=== PATIENT | female | born 1990 | race Caucasian/White ===

== ENCOUNTER → 2018-01-12 16:31 | Outpatient (CLI) | payer MEDICAID, SELFPAY ==
[2018-01-12 17:22] LABS: Absolute Lymphocyte Count 2.33 X10^3/ul (0.83-4.51); Absolute Neutrophil Count 4.6 X10^3/uL (2.0-7.7); Basophil# 0.03 X10^3/uL; Basophil% 0.4 % (0-1); Eosinophil# 0.27 X10^3/uL; Eosinophils% 3.6 % (0-5); Hematocrit 35.2 % (37-47); Hemoglobin 11.4 g/dl (12.0-15.0); Lymphocyte # 2.33 X10^3/ul (4.0); Lymphocyte % 30.8 % (19-41); Mean Corp Hgb Conc 32.4 g/gl (32-36); Mean Corpuscular Hgb 33.3 pg (27.0-32.0); Mean Corpuscular Volume 102.9 fL (81-99); Mean Platelet Vol. 12.5 fl (6.2-12.0); Monocyte# 0.36 X10^3/uL; Monocyte% 4.8 % (0-10); Neutrophil # 4.57 X10^3/uL (2.7-7.7); Neutrophil % 60.3 % (47-70); Platelet Count 158 K/mm3 (150-450); RBC Distribution Width SD 47.9 fl (35.1-43.9); Red Blood Count 3.42 M/mm3 (4.2-5.4); White Blood Count 7.6 K/mm3 (4.4-11.0)
[2018-01-12 17:25] LABS: POSITIVE COUNT NO; POSITIVE DIFFERENTIAL NO; POSITIVE MORPHOLOGY NO
[2018-01-12 17:32] LABS: AST(SGOT) 13 U/L (15-37); Alanine Aminotransfer ALT/SGPT 15 U/L (13-56); Albumin, Serum 3.6 g/dL (3.2-5.0); Alkaline Phosphatase 64 U/L (45-117); Anion Gap 5 (5-15); BUN 19 mg/dL (7-18); BUN/Creat Ratio 13.2 RATIO (10-20); Calcium,Total 8.8 mg/dL (8.5-10.1); Chloride 107 mmol/L (98-107); Creatinine, Serum 1.44 mg/dL (0.55-1.02); EST Glomerular Filtration Rate 46 mL/min (>60); Est Glom Filt Rate - Afr Amer 56 mL/min (>60); Globulin 3.5 g/dL (2.2-4.2); Glucose 109 mg/dL (74-106); Potassium 3.8 mmol/L (3.5-5.1); Protein, Total 7.1 g/dL (6.4-8.2); Sodium Level 140 mmol/L (136-145)
== END ==
DX: M06.4 Inflammatory polyarthropathy (principal)
CPT/HCPCS: 36415; 80053; 85025

== ENCOUNTER → 2018-04-29 14:45 | Outpatient (CLI) | payer MEDICAID, SELFPAY ==
[2018-04-29 15:41] LABS: Hematocrit 34.7 % (37-47); Hemoglobin 11.1 g/dl (12.0-15.0); Mean Corpuscular Hgb 32.3 pg (27.0-32.0); Mean Corpuscular Volume 100.9 fL (81-99); Mean Platelet Vol. 12.3 fl (6.2-12.0); Platelet Count 188 K/mm3 (150-450); RBC Distribution Width CV 13.9 % (11.6-14.6); RBC Distribution Width SD 51.1 fl (35.1-43.9); Red Blood Count 3.44 M/mm3 (4.2-5.4); White Blood Count 7.1 K/mm3 (4.4-11.0)
[2018-04-29 15:46] LABS: Scan Indicated on CBC? Y/N NO
[2018-04-29 16:22] LABS: Albumin, Serum 3.5 g/dL (3.2-5.0); BUN 14 mg/dL (7-18); BUN/Creat Ratio 10.5 RATIO (10-20); Calcium,Total 8.8 mg/dL (8.5-10.1); Chloride 108 mmol/L (98-107); Creatinine, Serum 1.33 mg/dL (0.55-1.02); EST Glomerular Filtration Rate 50 mL/min (>60); Est Glom Filt Rate - Afr Amer 61 mL/min (>60); Glucose 76 mg/dL (74-106); Phosphorus 3.1 mg/dL (2.5-4.9); Potassium 4.1 mmol/L (3.5-5.1); Sodium Level 141 mmol/L (136-145)
[2018-04-29 16:30] LABS: PTHIN 59.4 pg/mL (18.4-80.1)
[2018-04-29 16:46] LABS: Microalbumin:Creatinine Ratio 486.7 mg/g CRE (<30 mg/g CRE)
== END ==
PROVIDERS: Visit Provider Internal Medicine Nephrology
DX: N18.3 Chronic kidney disease, stage 3 (moderate) (principal)
CPT/HCPCS: 36415; 80069; 82043; 82306; 82570; 83970; 85027

== ENCOUNTER → 2018-08-21 13:47 | Outpatient (CLI) | payer MEDICAID, SELFPAY ==
[2018-08-21 14:59] LABS: Absolute Lymphocyte Count 2.13 X10^3/ul (0.83-4.51); Basophil# 0.03 X10^3/uL; Basophil% 0.4 % (0-1); Eosinophils% 2.6 % (0-5); Hematocrit 36.8 % (37-47); Hemoglobin 11.6 g/dl (12.0-15.0); Lymphocyte # 2.13 X10^3/ul (4.0); Lymphocyte % 27.7 % (19-41); Mean Corp Hgb Conc 31.5 g/gl (32-36); Mean Corpuscular Hgb 32.7 pg (27.0-32.0); Mean Corpuscular Volume 103.7 fL (81-99); Monocyte# 0.38 X10^3/uL; Monocyte% 4.9 % (0-10); Neutrophil # 4.95 X10^3/uL (2.7-7.7); Neutrophil % 64.3 % (47-70); Platelet Count 201 K/mm3 (150-450); RBC Distribution Width CV 13.9 % (11.6-14.6); RBC Distribution Width SD 52.4 fl (35.1-43.9); Red Blood Count 3.55 M/mm3 (4.2-5.4); White Blood Count 7.7 K/mm3 (4.4-11.0)
[2018-08-21 15:00] LABS: POSITIVE COUNT NO; POSITIVE DIFFERENTIAL NO; POSITIVE MORPHOLOGY NO
[2018-08-21 15:23] LABS: ALB/GLOB Ratio 1.1 RATIO (0.9-2.4); AST(SGOT) 17 U/L (15-37); Alanine Aminotransfer ALT/SGPT 22 U/L (13-56); Albumin, Serum 3.8 g/dL (3.2-5.0); Alkaline Phosphatase 71 U/L (45-117); Anion Gap 6 (5-15); BUN 15 mg/dL (7-18); BUN/Creat Ratio 9.9 RATIO (10-20); Calcium,Total 8.9 mg/dL (8.5-10.1); Chloride 106 mmol/L (98-107); Creatinine, Serum 1.51 mg/dL (0.55-1.02); EST Glomerular Filtration Rate 43 mL/min (>60); Est Glom Filt Rate - Afr Amer 52 mL/min (>60); Globulin 3.6 g/dL (2.2-4.2); Glucose 92 mg/dL (74-106); Potassium 4.2 mmol/L (3.5-5.1); Protein, Total 7.4 g/dL (6.4-8.2); Sodium Level 140 mmol/L (136-145)
== END ==
DX: M06.4 Inflammatory polyarthropathy (principal)
CPT/HCPCS: 36415; 80053; 85025

== ENCOUNTER → 2018-11-20 14:50 | Outpatient (CLI) | payer MEDICAID, SELFPAY ==
[2018-11-20 15:50] LABS: Absolute Lymphocyte Count 1.89 X10^3/ul (0.83-4.51); Absolute Neutrophil Count 5.4 X10^3/uL (2.0-7.7); Basophil# 0.03 X10^3/uL; Basophil% 0.4 % (0-1); Eosinophil# 0.14 X10^3/uL; Eosinophils% 1.8 % (0-5); Hematocrit 37.4 % (37-47); Hemoglobin 12.1 g/dl (12.0-15.0); Lymphocyte # 1.89 X10^3/ul (4.0); Lymphocyte % 24.4 % (19-41); Mean Corp Hgb Conc 32.4 g/gl (32-36); Mean Corpuscular Hgb 33.1 pg (27.0-32.0); Mean Corpuscular Volume 102.2 fL (81-99); Mean Platelet Vol. 12.8 fl (6.2-12.0); Monocyte# 0.28 X10^3/uL; Monocyte% 3.6 % (0-10); Neutrophil # 5.39 X10^3/uL (2.7-7.7); Neutrophil % 69.7 % (47-70); POSITIVE COUNT NO; POSITIVE DIFFERENTIAL NO; POSITIVE MORPHOLOGY NO; Platelet Count 175 K/mm3 (150-450); RBC Distribution Width CV 13.1 % (11.6-14.6); RBC Distribution Width SD 47.8 fl (35.1-43.9); Red Blood Count 3.66 M/mm3 (4.2-5.4); White Blood Count 7.7 K/mm3 (4.4-11.0)
[2018-11-20 16:11] LABS: Albumin, Serum 3.6 g/dL (3.2-5.0); BUN 21 mg/dL (7-18); BUN/Creat Ratio 14.4 RATIO (10-20); Calcium,Total 8.9 mg/dL (8.5-10.1); Chloride 109 mmol/L (98-107); Creatinine, Serum 1.46 mg/dL (0.55-1.02); EST Glomerular Filtration Rate 45 mL/min (>60); Est Glom Filt Rate - Afr Amer 54 mL/min (>60); Glucose 82 mg/dL (74-106); Phosphorus 3.7 mg/dL (2.5-4.9); Potassium 3.5 mmol/L (3.5-5.1); Sodium Level 142 mmol/L (136-145)
[2018-11-20 16:38] LABS: Protein:Creat Ratio 1942 mg/g CRE (0-200)
[2018-11-20 16:42] LABS: Vitamin D,25 Hydroxy 40.7 ng/mL (29.95-100.01)
== END ==
PROVIDERS: Referring Provider Internal Medicine Nephrology; Visit Provider Internal Medicine Nephrology
DX: N18.3 Chronic kidney disease, stage 3 (moderate) (principal); E55.9 Vitamin D deficiency, unspecified
CPT/HCPCS: 36415; 80069; 82306; 82570; 83970; 84156; 85025

== ENCOUNTER → 2019-02-12 14:35 | Outpatient (CLI) | payer MEDICAID, SELFPAY ==
[2019-02-12 15:02] LABS: Hematocrit 33.1 % (37-47); Hemoglobin 10.5 g/dl (12.0-15.0); Mean Corp Hgb Conc 31.7 g/gl (32-36); Mean Corpuscular Hgb 32.4 pg (27.0-32.0); Mean Corpuscular Volume 102.2 fL (81-99); Mean Platelet Vol. 12.7 fl (6.2-12.0); Platelet Count 181 K/mm3 (150-450); RBC Distribution Width CV 13.7 % (11.6-14.6); RBC Distribution Width SD 51.5 fl (35.1-43.9); Red Blood Count 3.24 M/mm3 (4.2-5.4); Scan Indicated on CBC? Y/N NO; White Blood Count 7.3 K/mm3 (4.4-11.0)
[2019-02-12 15:08] LABS: Protein, Urine (Random) 30.5 mg/dL (<11.9); Protein:Creat Ratio 376 mg/g CRE (0-200)
[2019-02-12 15:34] LABS: BUN 25 mg/dL (7-18); BUN/Creat Ratio 15.6 RATIO (10-20); Chloride 113 mmol/L (98-107); EST Glomerular Filtration Rate 40 mL/min (>60); Est Glom Filt Rate - Afr Amer 49 mL/min (>60); Glucose 102 mg/dL (74-106); Phosphorus 3.7 mg/dL (2.5-4.9); Potassium 4.7 mmol/L (3.5-5.1); Sodium Level 143 mmol/L (136-145)
[2019-02-12 15:37] LABS: PTHIN 41.2 pg/mL (18.4-80.1)
[2019-02-12 15:41] LABS: Vitamin D,25 Hydroxy 41.6 ng/mL (29.95-100.01)
== END ==
PROVIDERS: Referring Provider Physician Assistant Medical; Visit Provider Physician Assistant Medical
DX: N18.3 Chronic kidney disease, stage 3 (moderate) (principal); E55.9 Vitamin D deficiency, unspecified
CPT/HCPCS: 36415; 80069; 82306; 82570; 83970; 84156; 85027

== ENCOUNTER → 2019-05-05 13:47 | Outpatient (CLI) | payer MEDICAID, SELFPAY ==
[2019-05-05 14:33] LABS: Absolute Lymphocyte Count 2.02 X10^3/ul (0.83-4.51); Absolute Neutrophil Count 3.8 X10^3/uL (2.0-7.7); Basophil# 0.03 X10^3/uL; Basophil% 0.5 % (0-1); Eosinophil# 0.29 X10^3/uL; Eosinophils% 4.4 % (0-5); Hematocrit 33.4 % (37-47); Hemoglobin 10.6 g/dl (12.0-15.0); Lymphocyte # 2.02 X10^3/ul (4.0); Lymphocyte % 30.6 % (19-41); Mean Corp Hgb Conc 31.7 g/gl (32-36); Mean Corpuscular Hgb 32.8 pg (27.0-32.0); Mean Corpuscular Volume 103.4 fL (81-99); Mean Platelet Vol. 12.4 fl (6.2-12.0); Monocyte# 0.47 X10^3/uL; Monocyte% 7.1 % (0-10); Neutrophil # 3.78 X10^3/uL (2.7-7.7); Neutrophil % 57.2 % (47-70); Platelet Count 157 K/mm3 (150-450); RBC Distribution Width CV 13.2 % (11.6-14.6); RBC Distribution Width SD 48.6 fl (35.1-43.9); Red Blood Count 3.23 M/mm3 (4.2-5.4); White Blood Count 6.6 K/mm3 (4.4-11.0)
[2019-05-05 14:34] LABS: Color, Urine Yellow (Yellow); Glucose, Dipstick Normal (Normal); Ketone-Dipstick Negative (Negative); Leukocyte Esterase-Dipstick 100 /ul (Negative); Nitrite-Dipstick Negative (Negative); Occult Blood-Urine Negative /ul (Negative); POSITIVE COUNT NO; POSITIVE DIFFERENTIAL NO; POSITIVE MORPHOLOGY NO; Protein-Dipstick 15 mg/dl (Negative); Specific Gravity, Urine 1.015 (1.002-1.030); Urine Bilirubin Dipstick Negative (Negative); Urine Clarity Clear (Clear); Urine Urobilinogen Normal (Normal)
[2019-05-05 14:53] LABS: ALB/GLOB Ratio 1.1 RATIO (0.9-2.4); AST(SGOT) 12 U/L (15-37); Alanine Aminotransfer ALT/SGPT 23 U/L (13-56); Albumin, Serum 3.6 g/dL (3.2-5.0); Alkaline Phosphatase 52 U/L (45-117); Anion Gap 8 (5-15); BUN 27 mg/dL (7-18); BUN/Creat Ratio 16.5 RATIO (10-20); Bilirubin, Direct 0.09 mg/dL (0.00-0.30); Calcium,Total 9.2 mg/dL (8.5-10.1); Chloride 111 mmol/L (98-107); Cholesterol 118 mg/dL (200); Creatinine, Serum 1.64 mg/dL (0.55-1.02); EST Glomerular Filtration Rate 39 mL/min (>60); Est Glom Filt Rate - Afr Amer 47 mL/min (>60); Globulin 3.3 g/dL (2.2-4.2); Glucose 88 mg/dL (74-106); High Density Lipoprotein 62 mg/dL; Potassium 4.5 mmol/L (3.5-5.1); Protein, Total 6.9 g/dL (6.4-8.2); Sodium Level 143 mmol/L (136-145); Triglycerides 125 mg/dL; Very Low Density Lipoprotein 25 mg/dL (5-40)
== END ==
PROVIDERS: Referring Provider Nurse Practitioner Adult Health; Visit Provider Nurse Practitioner Adult Health
DX: Z00.00 Encounter for general adult medical examination without abnormal findings (principal); R19.4 Change in bowel habit
CPT/HCPCS: 36415; 80053; 80061; 81002; 82248; 85025

== ENCOUNTER → 2019-05-12 13:42 | Outpatient (CLI) | payer MEDICAID, SELFPAY ==
[2019-05-12 15:52] LABS: Absolute Lymphocyte Count 1.96 X10^3/ul (0.83-4.51); Absolute Neutrophil Count 4.4 X10^3/uL (2.0-7.7); Basophil# 0.05 X10^3/uL; Basophil% 0.7 % (0-1); Eosinophil# 0.22 X10^3/uL; Eosinophils% 3.2 % (0-5); Hematocrit 31.6 % (37-47); Lymphocyte # 1.96 X10^3/ul (4.0); Lymphocyte % 28.2 % (19-41); Mean Corp Hgb Conc 31.6 g/gl (32-36); Mean Corpuscular Hgb 33.1 pg (27.0-32.0); Mean Corpuscular Volume 104.6 fL (81-99); Monocyte# 0.34 X10^3/uL; Monocyte% 4.9 % (0-10); Neutrophil # 4.38 X10^3/uL (2.7-7.7); Neutrophil % 62.9 % (47-70); Platelet Count 197 K/mm3 (150-450); RBC Distribution Width CV 13.7 % (11.6-14.6); RBC Distribution Width SD 51.2 fl (35.1-43.9); Red Blood Count 3.02 M/mm3 (4.2-5.4)
[2019-05-12 15:53] LABS: POSITIVE COUNT NO; POSITIVE DIFFERENTIAL NO; POSITIVE MORPHOLOGY NO
[2019-05-12 16:03] LABS: Erythrocyte Sedimentation Rate 1 mm/hr (0-20)
[2019-05-12 16:23] LABS: Vitamin D,25 Hydroxy 33.1 ng/mL (29.95-100.01)
[2019-05-12 16:24] LABS: ALB/GLOB Ratio 1.2 RATIO (0.9-2.4); AST(SGOT) 10 U/L (15-37); Alanine Aminotransfer ALT/SGPT 20 U/L (13-56); Albumin, Serum 3.7 g/dL (3.2-5.0); Alkaline Phosphatase 55 U/L (45-117); Anion Gap 8 (5-15); BUN 30 mg/dL (7-18); BUN/Creat Ratio 17.9 RATIO (10-20); CPK Total, Creatine Kinase 55 U/L (26-192); CRP < 2.90 mg/L (0.0-3.0); Calcium,Total 8.9 mg/dL (8.5-10.1); Chloride 113 mmol/L (98-107); Creatinine, Serum 1.68 mg/dL (0.55-1.02); EST Glomerular Filtration Rate 38 mL/min (>60); Est Glom Filt Rate - Afr Amer 46 mL/min (>60); Globulin 3.2 g/dL (2.2-4.2); Glucose 97 mg/dL (74-106); Potassium 4.5 mmol/L (3.5-5.1); Protein, Total 6.9 g/dL (6.4-8.2); Rheumatoid Factor < 10.0 IU/mL (<15); Sodium Level 142 mmol/L (136-145)
[2019-05-14 16:07] LABS: Anti-Jo <0.2 AI (0.0-0.9); Anti-Scleroderma-70 AB <0.2 AI (0.0-0.9); SJOGREN'S Anti-SS-A test < 0.2 AI (0.0-0.9); SJOGREN'S Anti-SS-B test < 0.2 AI (0.0-0.9); Smith Ab <0.2 AI (0.0-0.9)
[2019-05-15 03:06] LABS: Complement C3 102 mg/dL (82-167)
[2019-05-16 14:04] LABS: ANTINUCLEAR ANTIBODIES DIRECT Positive (Negative); Anti-Mitochondrial AB <20.0 Units (0.0-20.0); Anti-dsDNA Ab 1 IU/mL (0-9)
[2019-05-16 14:05] LABS: Anti-Nuclear Antibody Test Negative (.)
[2019-05-16 14:06] LABS: Anti-Cardiolipin Ab, IgA, Qn < 9 APL U/mL (0-11); Anti-Cardiolipin Ab, IgG, Qn < 9 GPL U/mL (0-14); Anti-Cardiolipin Ab, IgM, Qn < 9 MPL U/mL (0-12); CCP IgG Antibodies 4 units (0-19); Thyroid Peroxidase AB 8 IU/mL (0-34)
== END ==
PROVIDERS: Referring Provider Internal Medicine Rheumatology; Visit Provider Internal Medicine Rheumatology
DX: N18.3 Chronic kidney disease, stage 3 (moderate) (principal); M06.4 Inflammatory polyarthropathy; M87.00 Idiopathic aseptic necrosis of unspecified bone; M32.8 Other forms of systemic lupus erythematosus; Z79.899 Other long term (current) drug therapy
CPT/HCPCS: 36415; 80053; 82306; 82550; 83516; 85025; 85652; 86038; 86140; 86147; 86160; 86200; 86225; 86235; 86376; 86431

== ENCOUNTER → 2019-06-02 08:10 | Outpatient (CLI) | payer MEDICAID, SELFPAY ==
--- NOTE | 2019-06-02 08:18 | RAD_ITS ---
HISTORY: HISTORY: AVASCULAR NECROSIS OF BONE,INFLAMMATORY POLYARTHROPATHY, LUPUS XR Hand Min 3 Views COMPARISON: None FINDINGS: # of images incl. paperwork: 3 3 views of the left hand. Findings: No fracture or subluxation. No osseous or soft tissue abnormality. No significant joint space narrowing. No radiopaque foreign body. RAD/Hand Min 3 Views IMPRESSION: Normal left hand. at 0330 Reported and signed by: Orville Beaver MD Electronically Signed: Orville Beaver MD at 3:29 EDT Tel , Service support ,
--- NOTE | 2019-06-02 08:22 | RAD_ITS ---
STUDY: X-RAY CHEST REASON FOR EXAM: Female, 28 years old. Avascular necrosis, lupus TECHNIQUE: PA and lateral chest COMPARISON: 01/08/2017 FINDINGS: The lungs are clear and expanded. There is no demonstrated pleural abnormality. Normal size heart. Normal mediastinum and alexandra. Normal visualized pulmonary arteries. Normal visualized aortic arch and descending thoracic aorta. There is chronic deformity of both shoulders with subchondral sclerosis. There are sternal wires. There is mild pectus deformity of the chest. There are degenerative changes of the thoracic spine. There are no pleural effusions. There is no demonstrated abnormality of the visualized soft tissue structures of the upper abdomen. There is distention of the colon within the upper abdomen. RAD/Chest PA and Lateral IMPRESSION: Bilateral shoulder avascular necrosis with degenerative changes Multilevel spondylosis thoracic spine Electronically Signed: Godwin Robertson, at 23:46 EDT Tel , Service support ,
--- NOTE | 2019-06-02 08:26 | RAD_ITS ---
STUDY: X-RAY - RIGHT SHOULDER REASON FOR EXAM: Female, 28 years old. Shoulder pain TECHNIQUE: 3 view(s) of the shoulder. COMPARISON: Multiple prior chest radiographs and CTA chest 06/12/2016 FINDINGS: There is stable sclerosis within the humeral head. There is mild deformity of the humeral head. This is chronic. There are sternal wires.. Normal acromioclavicular joint. Normal acromion. . The soft tissue structures are unremarkable. Normal visualized pulmonary apex. RAD/Shoulder min 2 Views IMPRESSION: Likely avascular necrosis right humeral head, no acute findings Sternal wires Electronically Signed: Godwin Robertson, at 23:21 EDT Tel , Service support ,
--- NOTE | 2019-06-02 08:32 | RAD_ITS ---
STUDY: X-RAY - LEFT SHOULDER REASON FOR EXAM: Female, 28 years old. Shoulder pain TECHNIQUE: 3 view(s) of the shoulder. COMPARISON: Prior chest radiographs FINDINGS: There is stable sclerosis and deformity of the humeral head. There is likely a bony exostosis.. The soft tissue structures are unremarkable. There are sternal wires. Normal visualized pulmonary apex. RAD/Shoulder min 2 Views IMPRESSION: Avascular necrosis of the left humeral head Sternal wires Electronically Signed: Godwin Robertson, at 23:24 EDT Tel , Service support ,
--- NOTE | 2019-06-02 08:38 | RAD_ITS ---
HISTORY: HISTORY: AVASCULAR NECROSIS OF BONE,INFLAMMATORY POLYARTHROPATHY, LUPUS XR Hand Min 3 Views COMPARISON: No comparison imaging of the right hand FINDINGS: # of images incl. paperwork: 3 3 views of the right hand. Findings: No fracture or subluxation. No osseous or soft tissue abnormality. No significant joint space narrowing. No radiopaque foreign body. RAD/Hand Min 3 Views IMPRESSION: Normal right hand. at 0320 Reported and signed by: Orville Beaver MD Electronically Signed: Orville Beaver MD at 3:19 EDT Tel , Service support ,
--- NOTE | 2019-06-02 08:42 | RAD_ITS ---
STUDY: X-RAY - RIGHT ELBOW REASON FOR EXAM: Female, 28 years old. Avascular sclerosis, pain, SLE TECHNIQUE: AP and lateral view(s) of the elbow. COMPARISON: None. FINDINGS: Normal visualized humerus, radius and ulna. Normal radiocapitellar and ulnotrochlear articulations. The soft tissue structures are unremarkable. There are small coronoid osteophytes. There are small radial head osteophytes. RAD/Elbow 2 Views IMPRESSION: Mild osteoarthrosis, no acute fractures Electronically Signed: Godwin Robertson, at 23:41 EDT Tel , Service support ,
== END ==
PROVIDERS: PCP Family Medicine; Referring Provider Internal Medicine Rheumatology; Visit Provider Internal Medicine Rheumatology
DX: M06.4 Inflammatory polyarthropathy (principal); N18.3 Chronic kidney disease, stage 3 (moderate); M32.9 Systemic lupus erythematosus, unspecified; M87.00 Idiopathic aseptic necrosis of unspecified bone; M19.90 Unspecified osteoarthritis, unspecified site; Z79.899 Other long term (current) drug therapy
CPT/HCPCS: 71046; 73030; 73070; 73130

== ENCOUNTER 2019-06-13 09:16 | Emergency (ER) | payer MEDICAID, SELFPAY ==
[2019-06-13 09:17] VITALS: BP 114/75; PULSE 80; RESP 16; TEMP 36.9; O2SAT 100; BMI 19.9
--- NOTE | 2019-06-13 09:37 | RAD_ITS ---
STUDY: X-RAY - RIGHT KNEE REASON FOR EXAM: Female, 28 years old. History of vascular necrosis of the right hip. Fall. TECHNIQUE: 2 view(s) of the knee. COMPARISON: None. FINDINGS: Normal visualized distal femur. Normal visualized proximal tibia and fibula. Normal proximal tibiofibular articulation. There is mild degenerative arthrosis of the medial femorotibial compartment. There is moderate degenerative arthrosis of the lateral femorotibial compartment with moderate joint space narrowing. There is mild degenerative arthrosis of the patellofemoral articulation. There is no demonstrated joint effusion. The soft tissue structures are unremarkable. RAD/Knee 1 or 2 Views IMPRESSION: Degenerative arthrosis. There is no acute fracture or dislocation. Electronically Signed: Paul Edmondson DO at 10:31 EDT Tel [phone], Service support ,
--- NOTE | 2019-06-13 09:37 | RAD_ITS ---
STUDY: X-RAY - PELVIS AND RIGHT HIP REASON FOR EXAM: Female, 28 years old. Prevascular necrosis in the right hip. Fall onto right hip. TECHNIQUE: 3 views of the pelvis and hip. COMPARISON: None. FINDINGS: There is a non-specific bowel gas pattern. Normal visualized soft tissue structures. Normal bilateral iliac wings, sacroiliac joints and visualized sacrum. Normal bilateral superior and inferior pubic rami. Normal pubic symphysis. Normal bilateral ischial tuberosities. There are moderate degenerative changes on the left hip. The right femoral head is overall sclerotic with evidence of irregularity of the articular surface and multiple lytic areas. The findings are suggestive of AVN with partial collapse of the femoral head. There is osteoarthritic spur formation of the right acetabular rim. is severe articular joint space narrowing of the right hip. RAD/HIP, UNI W/ Pelvis 2-3 Views IMPRESSION: Severe degenerative changes of the right hip with evidence of AVN. No acute fracture or dislocation. Electronically Signed: Paul Edmondson DO at 10:30 EDT Tel [phone], Service support ,
--- NOTE | 2019-06-13 09:42 | ED.DCSUM_ITS ---
History of Present Illness Informant: Patient, Family, Teachers Assistant Onset: Today Context: Sudden Onset Timing: Continuous Quality: Sharp Location: Right hip and knee Current Severity: Severe Maximum Severity: Severe Worsened by: Movement Relieved by: Nothing Associated Symptoms: Denies Narrative: 28-year-old female with a history of lupus presents to the emergency department by squad after a fall. Patient tripped and fell onto her right side just prior to arrival. She had no prodromal symptoms. She states that she hit her head but did not lose consciousness. She is only having pain at this time in her right hip and knee. She has not had a headache dizziness vomiting visual changes or numbness or tingling. She has a history of avascular necrosis in this hip pain is having significant pain. She has not attempted to ambulate since this occurred. She is not on blood thinners. She denies any other review of systems at this time. Prior similar symptoms: Yes Recent Illness/Hospitalization: No <Dominguez Gómez - Last Filed: 06/13/19 09:42> <Demario Ortiz - Last Filed: 06/13/19 12:08> Chief Complaint: Fall Past Medical History Prior records reviewed: Yes Past Medical History: - - Lupus, chronic kidney disease, mixed connective tissue disorder, history of avascular necrosis of multiple joints Surgical History: cholecystectomy, - - Heart surgery at age 1, kidney removal at a similar age Lives: With Family Smoking Status: Never smoker <Dominguez Gómez - Last Filed: 06/13/19 09:42> <Demario Ortiz - Last Filed: 06/13/19 12:08> - Allergies and Home Meds Allergies/Adverse Reactions: Allergies adhesive Allergy (Verified 06/13/19 09:22) Rash Primary Care Physician: Kimani Smith MD [Primary Care Provider] - Review of Systems All systems negative except as indicated General: Denies: Chills, Fever Cardiovascular: Denies: Chest pain Respiratory: Denies: Dyspnea Gastrointestinal: Denies: Nausea, Vomiting Musculoskeletal: Reports: Extremity Pain Neurological: Denies: Headache, Weakness, Parasthesia, Numbness <Dominguez Gómez - Last Filed: 06/13/19 09:42> Physical Exam Vital Signs/Narrative: Vital Signs Temp Pulse Resp BP Pulse Ox 06/13/19 09:17 98.4 F 80 16 114/75 100 Inital Vital Signs reviewed: Yes General: Well nourished, Well developed, No Acute Distress Head: Normocephalic, Atraumatic Eyes: Perrl, EOMI ENT: Moist mucous membranes, - - Negative raccoon sign. Negative villatoro sign. No nasal septal hematoma. No sign of trauma on the head face or neck. Negative hemotympanum bilaterally. Neck: Supple, Nontender, - - Normal active range of motion of the neck Cardiovascular: Regular rate, Regular rhythm Respiratory: No distress, CTA bilaterally, Chest nontender Abdomen: Soft, Nontender, Nondistended, Normal bowel sounds, No masses Back: Nontender Extremities: Tenderness - Right hip pain on palpation laterally. Skin intact. No bruising or deformity. Neurovascularly intact distally. Normal range of motion actively but it is painful. Normal inspection of the knee with mild tenderness laterally but normal flexion and extension actively and again neurovascularly intact distally. Neurological: Alert, Oriented x3, Cranial nerves II-XII grossly intact, Normal Strength, Normal Sensation <Dominguez Gómez - Last Filed: 06/13/19 09:42> Vital Signs/Narrative: Vital Signs Temp Pulse Resp BP Pulse Ox 06/13/19 11:54 69 16 111/60 100 06/13/19 09:17 98.4 F 80 16 114/75 100 <Demario Ortiz - Last Filed: 06/13/19 12:08> Diagnostic/Tx/Re-eval Clinical Impression(s) from Imaging Studies Hip/Pelvis X-Ray 06/13/19 09:37 IMPRESSION: Severe degenerative changes of the right hip with evidence of AVN. No acute fracture or dislocation. Electronically Signed: Paul Edmondson DO at 10:30 EDT Tel [phone], Service support , Knee X-Ray 06/13/19 09:37 IMPRESSION: Degenerative arthrosis. There is no acute fracture or dislocation. Electronically Signed: Paul Edmondson DO at 10:31 EDT Tel [phone], Service support , Pelvis CT 06/13/19 10:51 IMPRESSION: Findings consistent with AVN of the bilateral femoral heads, right greater than left. There is no evidence of acute fracture or dislocation. Electronically Signed: Paul EdmondsonDO at 11:34 EDT Tel [phone], Service support , - Medical Decision Making Seen and evaluated independently and in conjunction with physician outpatient physical therapist assistant. Agree with notes above unless documented otherwise. Initially we were concerned about a hip fracture from this fall, her right lower extremity appears to maybe be a little shortened, she has significant pain with logroll, however she has avascular necrosis in this hip chronically, and could have those findings with that condition. Her x-ray showed no acute fracture and showed the AVN that was already known. Given the history and suspicion we additionally ordered a CT, it is negative for fracture. She said that she was having trouble putting any weight on it so we got her up and she is actually able to walk and her mom states that she is close to baseline is comfortable taking her home. Therefore I do not think she needs to be admitted for an MRI at this point. Advised outpatient follow-up with her automobile taillight assembler as planned. They are referring her to orthopedics apparently and that has not happened yet. <Demario Ortiz - Last Filed: 06/13/19 12:08> ED Disposition <Dominguez Gómez - Last Filed: 06/13/19 09:42> <Demario Ortiz - Last Filed: 06/13/19 12:08> - Plan for ED Patient: Disposition: Home or Assisted Living Diagnosis: Fall from slip, trip, or stumble, Avascular necrosis of bone of right hip, Contusion of hip, right Instructions: Hip Contusion Referrals: Kimani Smith MD [Primary Care Provider] - Dagmar Jorge DO [STAFF PHYSICIAN] - As soon as possible (call for appt)
[2019-06-13] MEDS: Morphine 4 MG/ML Syringe IV ×2 (09:43→11:52)
[2019-06-13] MEDS: Ondansetron 4 MG/2 ML Vial IV ×2 (09:43→11:53)
--- NOTE | 2019-06-13 10:51 | CT_ITS ---
STUDY: CT PELVIS WITHOUT CONTRAST REASON FOR EXAM: Female, 28 years old. Right hip pain after fall. History of vascular necrosis. RADIATION DOSAGE (If Supplied By Facility): CTDIvol = ( 12.94 ) mGy, DLP = ( 436.14 ) mGycm TECHNIQUE: Transaxial imaging of the pelvis was performed without oral contrast, and without intravenous administration of contrast material. Multiplanar coronal and sagittal images were reformatted. Individualized dose optimization techniques were used for this CT. COMPARISON: Pelvis and right hip, June 13, 2019. FINDINGS: Normal urinary bladder. Uterus. Question small cyst left ovary. The right ovary is unremarkable. Normal visualized small intestine. Normal visualized colon. Is minimal free fluid in the posterior cul-de-sac, thought to be physiologic. There is no free air There is no pelvic mass lesion or lymphadenopathy. Normal visualized pelvic arteries. Normal abdominal wall. Normal visualized lumbar spine, sacrum and sacroiliac joints. Normal iliac wings, bilateral superior and inferior pubic rami and ischial tuberosities. There is osteophyte formation about the left femoral head. There is evidence of sclerosis with evidence of defects along the cortical surface consistent with AVN. There is marked spurring of the acetabulum with subchondral cystic changes. There is no visualized fracture or dislocation. There is osteophyte formation about the right femoral head. There is flattening of the articular surface with multiple small defects. There is subchondral cystic change and sclerosis suggestive of AVN. There is marked acetabular spurring and narrowing of the right hip joint. There is no visualized fracture or dislocation. CT/Pelvis without IV Contrast IMPRESSION: Findings consistent with AVN of the bilateral femoral heads, right greater than left. There is no evidence of acute fracture or dislocation. Electronically Signed: Paul Edmondson DO at 11:34 EDT Tel [phone], Service support ,
[2019-06-13 11:54] VITALS: BP 111/60; PULSE 69; RESP 16; O2SAT 100
[2019-06-13 12:28] VITALS: BP 124/77; PULSE 62; RESP 15; O2SAT 98
== END 2019-06-13 12:28 | disposition home or self-care (01) ==
PROVIDERS: Emergency Provider Physician Assistant Medical; PCP Family Medicine
DX: M87.851 Other osteonecrosis, right femur (principal); S70.01XA Contusion of right hip, initial encounter; W01.0XXA Fall on same level from slipping, tripping and stumbling without subsequent striking against object, initial encounter; Y93.9 Activity, unspecified; Y92.9 Unspecified place or not applicable; Y99.9 Unspecified external cause status; M32.9 Systemic lupus erythematosus, unspecified; N18.9 Chronic kidney disease, unspecified; Z79.899 Other long term (current) drug therapy; Z90.49 Acquired absence of other specified parts of digestive tract
CPT/HCPCS: 72192; 73502; 73560; 96374; 96375; 96376; 99285; A4216; J2405

== ENCOUNTER → 2019-08-20 15:10 | Outpatient (CLI) | payer MEDICAID, SELFPAY ==
[2019-08-20 17:10] LABS: Hematocrit 34.4 % (37-47); Hemoglobin 10.7 g/dL (12.0-15.0); Mean Corp Hgb Conc 31.1 g/dL (32-36); Mean Corpuscular Hgb 33.4 pg (27.0-32.0); Mean Corpuscular Volume 107.5 fL (81-99); Mean Platelet Vol. 13.6 fl (6.2-12.0); Platelet Count 147 K/mm3 (150-450); RBC Distribution Width CV 12.6 % (11.6-14.6); RBC Distribution Width SD 49.7 fl (35.1-43.9); White Blood Count 6.2 K/mm3 (4.4-11.0)
[2019-08-20 17:16] LABS: Albumin, Serum 3.9 g/dL (3.2-5.0); BUN 22 mg/dL (7-18); BUN/Creat Ratio 13.2 RATIO (10-20); Calcium,Total 9.1 mg/dL (8.5-10.1); Chloride 114 mmol/L (98-107); Creatinine, Serum 1.67 mg/dL (0.55-1.02); EST Glomerular Filtration Rate 38 mL/min (>60); Est Glom Filt Rate - Afr Amer 46 mL/min (>60); Glucose 90 mg/dL (74-106); Phosphorus 3.5 mg/dL (2.5-4.9); Potassium 4.6 mmol/L (3.5-5.1); Sodium Level 142 mmol/L (136-145)
[2019-08-20 17:27] LABS: Vitamin D,25 Hydroxy 41.7 ng/mL (29.95-100.01)
[2019-08-20 17:29] LABS: Protein, Urine (Random) 30.9 mg/dL (<11.9); Protein:Creat Ratio 330 mg/g CRE (0-200)
[2019-08-23 08:48] LABS: PTHIN 38.3 pg/mL (18.4-80.1)
== END ==
PROVIDERS: PCP Family Medicine; Referring Provider Internal Medicine Nephrology; Visit Provider Internal Medicine Nephrology
DX: N18.3 Chronic kidney disease, stage 3 (moderate) (principal)
CPT/HCPCS: 36415; 80069; 82306; 82570; 83970; 84156; 85027

== ENCOUNTER 2019-08-21 16:26 | Emergency (ER) | payer MEDICAID, SELFPAY ==
[2019-08-21 16:27] VITALS: BP 94/59; PULSE 87; RESP 16; TEMP 36.7; O2SAT 100; BMI 18.9
--- NOTE | 2019-08-21 16:46 | EKG12_ITS ---
Test Reason : SYNCOPE Blood Pressure : / mmHG Vent. Rate : 077 BPM Atrial Rate : 077 BPM P-R Int : 192 ms QRS Dur : 144 ms QT Int : 418 ms P-R-T Axes : 037 091 044 degrees QTc Int : 473 ms Normal sinus rhythm Right bundle branch block Abnormal ECG Confirmed by CHADWICK BOYKIN, YAYO ([id number]), assistant editor SHANICE KULKARNI ([id number]) on 09/01/2019 9:16:41 A M Referred By: Betito Tucker Confirmed By:PEPE GENAO MD
--- NOTE | 2019-08-21 16:46 | RAD_ITS ---
HISTORY:SYNCOPICAL EPISODE TODAY, NOT FEELING WELL SINCEHX OF PERICARDITIS, LUPUS, RIGHT BUNDLE BRANCH BLOCK, HTN AND CKD SYNCOPICAL EPISODE TODAY, NOT FEELING WELL SINCEHX OF PERICARDITIS, LUPUS, RIGHT BUNDLE BRANCH BLOCK, HTN AND CKD EXAM: XR Chest 2 Views: COMPARISON: June 02, 2019 FINDINGS: # of images incl. paperwork: 2 LINES/DEVICES: None. LUNGS: Radiographically clear. No consolidation, edema or effusion. No pneumothorax. MEDIASTINUM AND CARDIOVASCULAR STRUCTURES: Cardiac silhouette not enlarged. BONES AND SOFT TISSUES: Avascular necrosis of the bilateral humeral heads similar to prior study RAD/Chest PA and Lateral IMPRESSION: No radiographic evidence of acute cardiopulmonary disease. at 1754 Reported and signed by: Aury Gordon DO Electronically Signed: Aury Gordon DO at 17:53 EDT Tel , Service support ,
[2019-08-21 16:50] VITALS: BP 100/71; BP 105/71; BP 92/64; PULSE 104; PULSE 81; PULSE 96
--- NOTE | 2019-08-21 16:51 | ED.DCSUM_ITS ---
History of Present Illness Chief Complaint: Syncope Informant: Patient, Family Onset: Today Context: Sudden Onset Narrative: Patient is a 29-year-old female with extensive medical history including SLE, avascular necrosis of the hip and the shoulder, IBS, history of ventricular septal defect status post repair and mixed connective tissue disease presenting after syncopal episode. Patient states she was at the store with her mother walked around for approximately 20 minutes. She suddenly started to have chest pressure, her vision darkened and she could not hear. Patient then woke up on the ground. Mother thinks she was out for approximately 1 minute. She did not have any seizure-like activity. Patient states she does not have a history of syncope. She denies any urinary symptoms but states she does have a history of urinary tract infections. She currently denies any chest pain but is complaining of a headache. She states she woke up with a headache after she passed out. She describes as mild and diffuse. She does comment that she has had more diarrhea than normal over the past few days. She is concerned she might be dehydrated because of this. She denies any black or bloody stools. She states his diarrhea is typical of her IBS. Patient is on Plaquenil for immunosuppressive. She denies any other complaints at this time. Her last mental period was 1 month ago and she does not think she is . Past Medical History - Allergies and Home Meds Allergies/Adverse Reactions: Allergies adhesive Allergy (Verified 06/13/19 09:22) Rash Primary Care Physician: Kimani Smith MD [Primary Care Provider] - Past Medical History: - - SLE, avascular necrosis, mixed connective tissue disease Surgical History: cholecystectomy, - - Heart surgery at age 1, kidney removal at a similar age Lives: With Family Smoking Status: Never smoker Review of Systems All systems negative except as indicated General: Reports: - - Syncope Cardiovascular: Reports: - - Chest pressure just prior to syncopal episode Gastrointestinal: Reports: Diarrhea. Denies: Abdominal pain, Melena Physical Exam Vital Signs/Narrative: Vital Signs Temp Pulse Resp BP Pulse Ox 08/21/19 16:27 98.1 F 87 16 94/59 L 100 Inital Vital Signs reviewed: Yes General: Well developed, No Acute Distress Head: Normocephalic, Atraumatic Eyes: Perrl, EOMI ENT: Moist mucous membranes, No rhinorrhea Neck: Supple, Nontender Cardiovascular: Regular rate, Regular rhythm, No murmurs Respiratory: No distress, CTA bilaterally, Chest nontender Abdomen: Soft, Nontender, Nondistended, Normal bowel sounds Back: Nontender, Normal Inspection Extremities: Nontender, No edema, - - Diffuse clubbing of the fingers,equal peripheral pulses Skin: Normal color, No rash Neurological: Alert, Oriented x3, Cranial nerves II-XII grossly intact, Normal Strength, Normal Sensation Psychological: Normal affect, Normal Mood Diagnostic/Tx/Re-eval Chest X-Ray - ED: 2 View, Read by ED Physician, Read by Radiologist, No Acute Disease Laboratory Results - last 24 hr 08/21/19 08/21/19 08/21/19 17:13 17:13 17:13 WBC 7.4 RBC 3.07 L Hgb 10.3 L Hct 32.2 L MCV 104.9 H MCH 33.6 H MCHC 32.0 RDW Std Deviation 48.8 H RDW Coeff of Deejay 12.9 Plt Count 140 L MPV 13.3 H Immature Gran % (Auto) 0.400 Neut % (Auto) 73.9 H Lymph % (Auto) 19.3 Cannon % (Auto) 5.0 Eos % (Auto) 1.0 Baso % (Auto) 0.4 Absolute Neuts (auto) 5.4 Absolute Lymphs (auto) 1.42 Nucleated RBC % 0 Differential Comment SCANNED Platelet Estimate ADEQUATE Ovalocytes RARE Acanthocytes (Spur) RARE Sodium 143 Potassium 4.3 Chloride 114 H Carbon Dioxide 21.0 Anion Gap 8 BUN 31 H Creatinine 2.01 H Estim Creat Clear Calc 28.43 Est GFR (MDRD) Af Amer 37 L Est GFR (MDRD) Non-Af 31 L BUN/Creatinine Ratio 15.4 Glucose 86 Calcium 8.7 Total Bilirubin 0.30 AST 45 H ALT 46 Alkaline Phosphatase 57 Total Protein 6.7 Albumin 3.8 Globulin 2.9 Albumin/Globulin Ratio 1.3 Serum , Qual NEGATIVE Urine Color Urine Clarity Urine pH Ur Specific [place] Urine Protein Urine Glucose (UA) Urine Ketones Urine Occult Blood Urine Nitrite Urine Bilirubin Urine Urobilinogen Ur Leukocyte Esterase Urine RBC Urine WBC Ur Squamous Epith Cells Amorphous Sediment Urine Bacteria Urine Mucus 08/21/19 18:17 WBC RBC Hgb Hct MCV MCH MCHC RDW Std Deviation RDW Coeff of Deejay Plt Count MPV Immature Gran % (Auto) Neut % (Auto) Lymph % (Auto) Cannon % (Auto) Eos % (Auto) Baso % (Auto) Absolute Neuts (auto) Absolute Lymphs (auto) Nucleated RBC % Differential Comment Platelet Estimate Ovalocytes Acanthocytes (Spur) Sodium Potassium Chloride Carbon Dioxide Anion Gap BUN Creatinine Estim Creat Clear Calc Est GFR (MDRD) Af Amer Est GFR (MDRD) Non-Af BUN/Creatinine Ratio Glucose Calcium Total Bilirubin AST ALT Alkaline Phosphatase Total Protein Albumin Globulin Albumin/Globulin Ratio Serum , Qual Urine Color Yellow Urine Clarity Cloudy Urine pH 5.0 Ur Specific [place] 1.015 Urine Protein 30 H Urine Glucose (UA) Normal Urine Ketones Negative Urine Occult Blood 25 H Urine Nitrite Negative Urine Bilirubin Negative Urine Urobilinogen Normal Ur Leukocyte Esterase 500 H Urine RBC 5-10 SEEN Urine WBC 50-100 SEEN Ur Squamous Epith Cells 5-10 SEEN Amorphous Sediment 1+ URATE Urine Bacteria 1+ Urine Mucus 0 SEEN - Rhythm Strip Rhythm Strip: Sinus Rhythm Rate: 77 Ectopy: None - EKG Initial EKG Interpretation: Sinus Rhythm, RBBB, Non-Specific ST Changes - Medical Decision Making She is evaluated after an episode of syncope. She appears nontoxic and in no acute distress. Vital signs are significant only for low normal blood pressure. She states she is already feeling better but does have a headache. Patient is given IV fluids. From the description of the episode it sounds like she had vasovagal syncope. Because patient has multiple comorbidities and is immunosuppressed blood work and chest x-ray is also done. EKG shows a right bundle branch block which is chronic for the patient. Patient has a mildly elevated creatinine. She is given 2 L total of IV fluids in the emergency room. Urinalysis is consistent with urinary tract infection. Urine culture is sent. Patient started on Keflex, dose was given in the emergency room. Patient does not have further systemic symptoms or laboratory abnormalities concerning for urosepsis or pyelonephritis. Patient's orthostatic vital signs are negative. Patient has significant improvement with IV fluids in the ER. She is comfortable with discharge home to follow-up with her primary care provider. Patient is counseled on signs and symptoms requiring return to the emergency room. Patient verbalizes agreement and understand this plan. Patient discharged home in stable and improved condition. ED Disposition - Plan for ED Patient: Disposition: Home or Assisted Living Diagnosis: Syncope and collapse, Urinary tract infection, CKD (chronic kidney disease) Instructions: Understanding Urinary Tract Infections (UTIs), SYNCOPE, Unk Cause Prescriptions: Cephalexin [Keflex] 500 mg PO Q12 #14 cap Prescription Printed Referrals: Kimani Smith MD [Primary Care Provider] -
[2019-08-21] MEDS: 0.9% Normal Saline 1,000 ML 1000 ML IV (17:18)
[2019-08-21 17:47] LABS: Absolute Lymphocyte Count 1.42 X10^3/uL (0.83-4.51); Absolute Neutrophil Count 5.4 X10^3/uL (2.0-7.7); Basophil# 0.03 X10^3/uL; Basophil% 0.4 % (0-1); Eosinophil# 0.07 X10^3/uL; Hematocrit 32.2 % (37-47); Hemoglobin 10.3 g/dL (12.0-15.0); Lymphocyte # 1.42 X10^3/ul (4.0); Lymphocyte % 19.3 % (19-41); Mean Corpuscular Hgb 33.6 pg (27.0-32.0); Mean Corpuscular Volume 104.9 fL (81-99); Mean Platelet Vol. 13.3 fl (6.2-12.0); Monocyte# 0.37 X10^3/uL; NRBC Flagged by Analyzer 0 % (0-5); Neutrophil # 5.43 X10^3/uL (2.7-7.7); Neutrophil % 73.9 % (47-70); Platelet Count 140 K/mm3 (150-450); RBC Distribution Width CV 12.9 % (11.6-14.6); RBC Distribution Width SD 48.8 fl (35.1-43.9); Red Blood Count 3.07 M/mm3 (4.2-5.4); White Blood Count 7.4 K/mm3 (4.4-11.0)
[2019-08-21 18:02] LABS: ALB/GLOB Ratio 1.3 RATIO (0.9-2.4); AST(SGOT) 45 U/L (15-37); Alanine Aminotransfer ALT/SGPT 46 U/L (13-56); Albumin, Serum 3.8 g/dL (3.2-5.0); Alkaline Phosphatase 57 U/L (45-117); Anion Gap 8 (5-15); BUN 31 mg/dL (7-18); BUN/Creat Ratio 15.4 RATIO (10-20); Calcium,Total 8.7 mg/dL (8.5-10.1); Chloride 114 mmol/L (98-107); Creatinine, Serum 2.01 mg/dL (0.55-1.02); EST Glomerular Filtration Rate 31 mL/min (>60); Est Glom Filt Rate - Afr Amer 37 mL/min (>60); Estimated Creatinine Clearance 28.43 ml/min; Globulin 2.9 g/dL (2.2-4.2); Glucose 86 mg/dL (74-106); Potassium 4.3 mmol/L (3.5-5.1); Protein, Total 6.7 g/dL (6.4-8.2); Sodium Level 143 mmol/L (136-145)
[2019-08-21 18:22] LABS: Mucous, Urine 0 SEEN /hpf (<or=2+)
[2019-08-21 18:30] LABS: Acanthocytes RARE; Differential Comment SCANNED; Ovalocyte RARE
[2019-08-21 18:31] LABS: Platelet Estimate ADEQUATE (ADEQ)
[2019-08-21 18:34] LABS: Color, Urine Yellow (Yellow); Glucose, Dipstick Normal (Normal); Ketone-Dipstick Negative (Negative); Leukocyte Esterase-Dipstick 500 /ul (Negative); Nitrite-Dipstick Negative (Negative); Occult Blood-Urine 25 /ul (Negative); Protein-Dipstick 30 mg/dl (Negative); Specific Gravity, Urine 1.015 (1.002-1.030); Urine Bilirubin Dipstick Negative (Negative); Urine Clarity Cloudy (Clear); Urine Urobilinogen Normal (Normal)
[2019-08-21 18:38] LABS: Internal QC Validated? YES +Cl - CLEAR BKGD; Pregnancy, Serum, hCG Quali. NEGATIVE Negative
[2019-08-21 18:49] LABS: Bacteria 1+ /hpf (None Seen); Red Blood Cells-Urine 5-10 SEEN /hpf (0-5); Squamous Epithelial Cells - UA 5-10 SEEN /hpf (5-10); White Blood Cells 50-100 SEEN /hpf (0-5)
[2019-08-21 18:50] LABS: Amorphous Sediment 1+ URATE
[2019-08-21] MEDS: 0.9% Normal Saline 1,000 ML 999 ML IV (18:56)
[2019-08-21] MEDS: Cephalexin 250 MG Capsule 500 MG PO (19:26)
[2019-08-21 20:32] VITALS: BP 96/77; PULSE 78; RESP 16; O2SAT 96
[2019-08-21 20:37] VITALS: BP 96/77; PULSE 77; RESP 16; O2SAT 97
== END 2019-08-21 20:40 | disposition home or self-care (01) ==
PROVIDERS: Emergency Provider Emergency Medicine; PCP Family Medicine
DX: R55 Syncope and collapse (principal); N39.0 Urinary tract infection, site not specified; N18.9 Chronic kidney disease, unspecified; M32.9 Systemic lupus erythematosus, unspecified; I45.10 Unspecified right bundle-branch block; K58.9 Irritable bowel syndrome, unspecified; R07.89 Other chest pain; R19.7 Diarrhea, unspecified; Z79.899 Other long term (current) drug therapy; Z87.440 Personal history of urinary (tract) infections; Z90.49 Acquired absence of other specified parts of digestive tract
CPT/HCPCS: 71046; 80053; 81001; 84703; 85025; 87086; 87088; 93005; 96360; 96361; 99284; J7030

== ENCOUNTER → 2020-01-28 08:45 | Outpatient (CLI) | payer MEDICAID, SELFPAY ==
[2020-01-28 09:55] LABS: ALB/GLOB Ratio 1.1 RATIO (0.9-2.4); AST(SGOT) 12 U/L (15-37); Alanine Aminotransfer ALT/SGPT 16 U/L (13-56); Albumin, Serum 3.6 g/dL (3.2-5.0); Alkaline Phosphatase 61 U/L (45-117); Anion Gap 3 (5-15); BUN 20 mg/dL (7-18); BUN/Creat Ratio 13.1 RATIO (10-20); CRP < 2.90 mg/L (0.0-3.0); Chloride 111 mmol/L (98-107); Creatinine, Serum 1.53 mg/dL (0.55-1.02); EST Glomerular Filtration Rate 42 mL/min (>60); Est Glom Filt Rate - Afr Amer 51 mL/min (>60); Globulin 3.4 g/dL (2.2-4.2); Glucose 95 mg/dL (74-106); Potassium 4.2 mmol/L (3.5-5.1); Sodium Level 141 mmol/L (136-145)
[2020-01-28 09:59] LABS: Erythrocyte Sedimentation Rate 2 mm/hr (0-20)
[2020-01-28 10:03] LABS: Absolute Lymphocyte Count 1.58 X10^3/uL (0.83-4.51); Basophil# 0.03 X10^3/uL; Basophil% 0.5 % (0-1); Eosinophil# 0.13 X10^3/uL; Eosinophils% 2.1 % (0-5); Hematocrit 33.3 % (37-47); Hemoglobin 10.6 g/dL (12.0-15.0); Lymphocyte # 1.58 X10^3/ul (4.0); Lymphocyte % 25.7 % (19-41); Mean Corp Hgb Conc 31.8 g/dL (32-36); Mean Corpuscular Hgb 32.8 pg (27.0-32.0); Mean Corpuscular Volume 103.1 fL (81-99); Mean Platelet Vol. 13.2 fl (6.2-12.0); Monocyte# 0.36 X10^3/uL; Monocyte% 5.9 % (0-10); NRBC Flagged by Analyzer 0 % (0-5); Neutrophil # 4.04 X10^3/uL (2.7-7.7); Neutrophil % 65.6 % (47-70); Platelet Count 133 K/mm3 (150-450); RBC Distribution Width CV 12.9 % (11.6-14.6); RBC Distribution Width SD 48.6 fl (35.1-43.9); Red Blood Count 3.23 M/mm3 (4.2-5.4); White Blood Count 6.2 K/mm3 (4.4-11.0)
== END ==
PROVIDERS: PCP Family Medicine; Referring Provider Internal Medicine Rheumatology; Visit Provider Internal Medicine Rheumatology
DX: M35.1 Other overlap syndromes (principal); M87.00 Idiopathic aseptic necrosis of unspecified bone; M06.4 Inflammatory polyarthropathy; N18.3 Chronic kidney disease, stage 3 (moderate); I31.9 Disease of pericardium, unspecified; M32.12 Pericarditis in systemic lupus erythematosus; M25.511 Pain in right shoulder; M25.512 Pain in left shoulder; G89.29 Other chronic pain; Z79.899 Other long term (current) drug therapy
CPT/HCPCS: 36415; 80053; 85025; 85652; 86140

== ENCOUNTER → 2020-02-11 08:18 | Outpatient (CLI) | payer MEDICAID, SELFPAY ==
[2020-02-11 08:41] LABS: Hematocrit 34.3 % (37-47); Hemoglobin 11.1 g/dL (12.0-15.0); Mean Corp Hgb Conc 32.4 g/dL (32-36); Mean Corpuscular Hgb 33.4 pg (27.0-32.0); Mean Corpuscular Volume 103.3 fL (81-99); Mean Platelet Vol. 12.5 fl (6.2-12.0); Platelet Count 154 K/mm3 (150-450); RBC Distribution Width CV 13.2 % (11.6-14.6); Red Blood Count 3.32 M/mm3 (4.2-5.4); White Blood Count 6.2 K/mm3 (4.4-11.0)
[2020-02-11 09:01] LABS: Protein, Urine (Random) 26.1 mg/dL (<11.9); Protein:Creat Ratio 359 mg/g CRE (0-200)
[2020-02-11 09:12] LABS: Albumin, Serum 3.7 g/dL (3.2-5.0); BUN 19 mg/dL (7-18); BUN/Creat Ratio 11.8 RATIO (10-20); Calcium,Total 9.3 mg/dL (8.5-10.1); Chloride 111 mmol/L (98-107); Creatinine, Serum 1.61 mg/dL (0.55-1.02); EST Glomerular Filtration Rate 40 mL/min (>60); Est Glom Filt Rate - Afr Amer 48 mL/min (>60); Glucose 97 mg/dL (74-106); Phosphorus 3.5 mg/dL (2.5-4.9); Potassium 4.2 mmol/L (3.5-5.1); Sodium Level 142 mmol/L (136-145)
[2020-02-11 09:16] LABS: PTHIN 41.5 pg/mL (18.4-80.1)
[2020-02-11 09:22] LABS: Vitamin D,25 Hydroxy 40.9 ng/mL
== END ==
PROVIDERS: PCP Family Medicine; Referring Provider Internal Medicine Nephrology; Visit Provider Internal Medicine Nephrology
DX: N18.3 Chronic kidney disease, stage 3 (moderate) (principal); E55.9 Vitamin D deficiency, unspecified; R80.9 Proteinuria, unspecified
CPT/HCPCS: 36415; 80069; 82306; 82570; 83970; 84156; 85027

== ENCOUNTER → 2020-05-05 12:44 | Outpatient (CLI) | payer MEDICAID, SELFPAY ==
[2020-05-05 13:27] LABS: Color, Urine Yellow (Yellow); Glucose, Dipstick Normal (Normal); Ketone-Dipstick Negative (Negative); Leukocyte Esterase-Dipstick 500 /ul (Negative); Nitrite-Dipstick Negative (Negative); Occult Blood-Urine 10 /ul (Negative); Protein-Dipstick 15 mg/dl (Negative); Urine Bilirubin Dipstick Negative (Negative); Urine Clarity Sl. Cloudy (Clear); Urine Urobilinogen Normal (Normal)
== END ==
PROVIDERS: PCP Family Medicine; Referring Provider Family Medicine; Visit Provider Family Medicine
DX: M54.5 Low back pain (principal); R30.0 Dysuria
CPT/HCPCS: 81002; 87086; 87088

== ENCOUNTER → 2020-05-16 10:11 | Outpatient (CLI) | payer MEDICAID, SELFPAY ==
[2020-05-16 10:42] LABS: Hematocrit 32.6 % (37-47); Hemoglobin 10.2 g/dL (12.0-15.0); Mean Corp Hgb Conc 31.3 g/dL (32-36); Mean Corpuscular Hgb 33.8 pg (27.0-32.0); Mean Corpuscular Volume 107.9 fL (81-99); Mean Platelet Vol. 12.1 fl (6.2-12.0); Platelet Count 167 K/mm3 (150-450); RBC Distribution Width CV 13.3 % (11.6-14.6); RBC Distribution Width SD 52.9 fl (35.1-43.9); Red Blood Count 3.02 M/mm3 (4.2-5.4)
[2020-05-16 10:55] LABS: Protein, Urine (Random) 13.9 mg/dL (<11.9); Protein:Creat Ratio 255 mg/g CRE (0-200)
[2020-05-16 11:13] LABS: Albumin, Serum 3.5 g/dL (3.2-5.0); BUN 24 mg/dL (7-18); BUN/Creat Ratio 15.6 RATIO (10-20); Calcium,Total 8.7 mg/dL (8.5-10.1); Chloride 105 mmol/L (98-107); Creatinine, Serum 1.54 mg/dL (0.55-1.02); EST Glomerular Filtration Rate 42 mL/min (>60); Est Glom Filt Rate - Afr Amer 51 mL/min (>60); Glucose 82 mg/dL (74-106); Phosphorus 3.7 mg/dL (2.5-4.9); Potassium 4.4 mmol/L (3.5-5.1); Sodium Level 136 mmol/L (136-145)
[2020-05-16 11:52] LABS: PTHIN 88.9 pg/mL (18.4-80.1)
[2020-05-16 11:57] LABS: Vitamin D,25 Hydroxy 51.7 ng/mL
== END ==
PROVIDERS: PCP Family Medicine; Referring Provider Internal Medicine Nephrology; Visit Provider Internal Medicine Nephrology
DX: N18.3 Chronic kidney disease, stage 3 (moderate) (principal); E55.9 Vitamin D deficiency, unspecified; R80.9 Proteinuria, unspecified
CPT/HCPCS: 36415; 80069; 82306; 82570; 83970; 84156; 85027

== ENCOUNTER → 2020-11-16 10:34 | Outpatient (CLI) | payer MEDICAID, SELFPAY ==
[2020-11-16 11:28] LABS: Protein, Urine (Random) 19.3 mg/dL (<11.9); Protein:Creat Ratio 213 mg/g CRE (0-200)
[2020-11-16 11:48] LABS: Anion Gap 5 (5-15); BUN 19 mg/dL (7-18); Calcium,Total 9.2 mg/dL (8.5-10.1); Chloride 107 mmol/L (98-107); Creatinine, Serum 1.72 mg/dL (0.55-1.02); EST Glomerular Filtration Rate 37 mL/min (>60); Est Glom Filt Rate - Afr Amer 44 mL/min (>60); Glucose 122 mg/dL (74-106); Potassium 4.2 mmol/L (3.5-5.1); Sodium Level 140 mmol/L (136-145)
== END ==
PROVIDERS: PCP Family Medicine; Visit Provider Internal Medicine Nephrology
DX: N18.30 Chronic kidney disease, stage 3 unspecified (principal)
CPT/HCPCS: 36415; 80048; 82570; 84156

== ENCOUNTER → 2021-01-09 14:35 | Outpatient (CLI) | payer MEDICAID, SELFPAY ==
[2021-01-09 16:25] LABS: Absolute Neutrophil Count 4.7 X10^3/uL (2.0-7.7); Basophil# 0.05 X10^3/uL; Basophil% 0.6 % (0-1); Eosinophil# 0.25 X10^3/uL; Eosinophils% 3.1 % (0-5); Hematocrit 34.6 % (37-47); Hemoglobin 10.9 g/dL (12.0-15.0); Lymphocyte % 32.1 % (19-41); Mean Corp Hgb Conc 31.5 g/dL (32-36); Mean Corpuscular Hgb 33.1 pg (27.0-32.0); Mean Corpuscular Volume 105.2 fL (81-99); Mean Platelet Vol. 13.1 fl (6.2-12.0); Monocyte# 0.52 X10^3/uL; Monocyte% 6.4 % (0-10); NRBC Flagged by Analyzer 0 % (0-5); Neutrophil # 4.65 X10^3/uL (2.7-7.7); Neutrophil % 57.6 % (47-70); Platelet Count 238 K/mm3 (150-450); RBC Distribution Width CV 12.4 % (11.6-14.6); RBC Distribution Width SD 47.8 fl (35.1-43.9); Red Blood Count 3.29 M/mm3 (4.2-5.4); White Blood Count 8.1 K/mm3 (4.4-11.0)
[2021-01-09 16:36] LABS: Erythrocyte Sedimentation Rate 6 mm/hr (0-30)
== END ==
PROVIDERS: PCP Family Medicine; Referring Provider Internal Medicine Rheumatology; Visit Provider Internal Medicine Rheumatology
DX: M06.4 Inflammatory polyarthropathy (principal); M35.1 Other overlap syndromes; N18.30 Chronic kidney disease, stage 3 unspecified; M87.00 Idiopathic aseptic necrosis of unspecified bone
CPT/HCPCS: 36415; 80053; 85025; 85652; 86140

== ENCOUNTER → 2022-05-07 | Outpatient (CLI) | payer MEDICAID, SELFPAY ==
[2022-05-07 09:13] LABS: Absolute Lymphocyte Count 2.06 X10^3/uL (0.83-4.51); Absolute Neutrophil Count 5.2 X10^3/uL (2.0-7.7); Basophil# 0.04 X10^3/uL; Basophil% 0.5 % (0-1); Eosinophils% 2.5 % (0-5); Hematocrit 37.5 % (37-47); Hemoglobin 12.2 g/dL (12.0-15.0); Lymphocyte # 2.06 X10^3/ul (0.83-4.51); Mean Corp Hgb Conc 32.5 g/dL (32-36); Mean Corpuscular Volume 101.4 fL (81-99); Mean Platelet Vol. 11.9 fl (6.2-12.0); Monocyte# 0.45 X10^3/uL; Monocyte% 5.7 % (0-10); NRBC Flagged by Analyzer 0 % (0-5); Neutrophil # 5.15 X10^3/uL (2.7-7.7); Neutrophil % 64.9 % (47-70); Platelet Count 219 K/mm3 (150-450); RBC Distribution Width SD 48.2 fl (35.1-43.9); White Blood Count 7.9 K/mm3 (4.4-11.0)
[2022-05-07 09:36] LABS: AST(SGOT) 13 U/L (15-37); Alanine Aminotransfer ALT/SGPT 23 U/L (13-56); Albumin, Serum 3.5 g/dL (3.2-5.0); Alkaline Phosphatase 76 U/L (45-117); Anion Gap 8 (5-15); BUN 16 mg/dL (7-18); BUN/Creat Ratio 10.3 RATIO (10-20); Calcium,Total 9.2 mg/dL (8.5-10.1); Chloride 110 mmol/L (98-107); Cholesterol 119 mg/dL (200); Creatinine, Serum 1.55 mg/dL (0.55-1.02); EST Glomerular Filtration Rate 41 mL/min (>60); Est Glom Filt Rate - Afr Amer 50 mL/min (>60); Globulin 3.5 g/dL (2.2-4.2); Glucose 97 mg/dL (74-106); High Density Lipoprotein 56 mg/dL; Potassium 3.7 mmol/L (3.5-5.1); Sodium Level 141 mmol/L (136-145); Triglycerides 112 mg/dL; Very Low Density Lipoprotein 22 mg/dL (5-40)
== END | disposition home or self-care (01) ==
PROVIDERS: PCP Family Medicine; Visit Provider Family Medicine
DX: Z00.00 Encounter for general adult medical examination without abnormal findings (principal); M32.9 Systemic lupus erythematosus, unspecified; N18.30 Chronic kidney disease, stage 3 unspecified
CPT/HCPCS: 36415; 80053; 80061; 85025

== ENCOUNTER → 2023-04-21 | Outpatient (CLI) | payer MEDICAID, SELFPAY ==
--- NOTE | 2023-04-21 13:45 | CT_ITS ---
CT RIGHT LOWER EXTREMITY WITH 3-D IMAGING CLINICAL INDICATION: Templating for right total hip arthroplasty. TECHNIQUE: Axial CT images of the RIGHT lower extremity (bilateral hips and bilateral knees) was performed. Coronal and sagittal reformats were provided. RADIATION DOSAGE (If Supplied By Facility): CTDIvol = ( 21.66 ) mGy, DLP = ( 1000.87 ) mGycm COMPARISON: Right knee x-rays dated June 13, 2019. FINDINGS: Bones: Moderate to severe arthrosis of the right hip. Moderate arthrosis of the left hip. Mild tricompartmental arthrosis of the knees. Soft Tissues: The deep soft tissue structures are normal. Superficial soft tissues are normal without evidence of edema, hematoma, or foreign body. CT/Extremity Lower without Contra IMPRESSION: Findings in the hips and knees as described. Electronically Signed: Tristen Pace MD at 14:31 EDT ,
== END | disposition home or self-care (01) ==
LOC: CT 13:41
PROVIDERS: PCP Family Medicine; Referring Provider Orthopaedic Surgery; Visit Provider Orthopaedic Surgery
DX: M87.00 Idiopathic aseptic necrosis of unspecified bone (principal); M16.11 Unilateral primary osteoarthritis, right hip
CPT/HCPCS: 73700

== ENCOUNTER 2023-08-05 05:09 | Inpatient (IN) | payer MEDICAID, SELFPAY ==
--- NOTE | 2023-07-24 09:45 | EKG12_ITS ---
Test Reason : PRE OP Blood Pressure : / mmHG Vent. Rate : 075 BPM Atrial Rate : 075 BPM P-R Int : 214 ms QRS Dur : 148 ms QT Int : 452 ms P-R-T Axes : 067 201 064 degrees QTc Int : 504 ms Sinus rhythm with 1st degree A-V block Right bundle branch block Abnormal ECG Confirmed by WALLACE BOYKIN, ALISON ([id number]), mapping editor ILDEFONSO DENG ([id number]) on 07/25/2023 1:57:17 PM Referred By: Mohinder Sotomayor Confirmed By:LAISON GONSALEZ MD
[2023-07-24 10:11] LABS: Absolute Lymphocyte Count 1.73 X10^3/uL (0.83-4.51); Absolute Neutrophil Count 6.6 X10^3/uL (2.0-7.7); Basophil# 0.03 X10^3/uL; Basophil% 0.3 % (0-1); Eosinophil# 0.11 X10^3/uL; Eosinophils% 1.2 % (0-5); Hematocrit 38.4 % (37-47); Hemoglobin 12.1 g/dL (12.0-15.0); Lymphocyte # 1.73 X10^3/ul (0.83-4.51); Lymphocyte % 19.4 % (19-41); Mean Corp Hgb Conc 31.5 g/dL (32-36); Mean Corpuscular Hgb 32.7 pg (27.0-32.0); Mean Corpuscular Volume 103.8 fL (81-99); Mean Platelet Vol. 12.8 fl (6.2-12.0); Monocyte# 0.49 X10^3/uL; Monocyte% 5.5 % (0-10); NRBC Flagged by Analyzer 0 % (0-5); Neutrophil # 6.56 X10^3/uL (2.7-7.7); Neutrophil % 73.4 % (47-70); Platelet Count 198 K/mm3 (150-450); RBC Distribution Width CV 12.7 % (11.6-14.6); RBC Distribution Width SD 48.5 fl (35.1-43.9); White Blood Count 8.9 K/mm3 (4.4-11.0)
[2023-07-24 10:24] LABS: International Normalized Ratio 0.9; Prothrombin Time (Protime)PT. 12.5 SECONDS (11.7-14.9)
[2023-07-24 10:25] LABS: Partial Thromboplast Time 29.7 Seconds (24.1-36.2)
[2023-07-24 10:27] LABS: Hemoglobin A1c 5.1 % (3.8-5.6)
[2023-07-24 10:31] LABS: Anion Gap 6 (5-15); BUN 24 mg/dL (7-18); BUN/Creat Ratio 13.8 RATIO (10-20); Calcium,Total 9.4 mg/dL (8.5-10.1); Chloride 108 mmol/L (98-107); Creatinine, Serum 1.74 mg/dL (0.55-1.02); EST Glomerular Filtration Rate 36 mL/min (>60); Est Glom Filt Rate - Afr Amer 43 mL/min (>60); Glucose 98 mg/dL (74-106); Magnesium 2.3 mg/dL (1.6-2.6); Potassium 4.4 mmol/L (3.5-5.1); Sodium Level 139 mmol/L (136-145)
[2023-07-25 04:07] LABS: Fructosamine 224 umol/L (0-285)
[2023-08-05] VITALS (17 sets, daily range): BP systolic 70–120; BP diastolic 52–88; PULSE 51–87; RESP 10–18; TEMP 36.2–36.9; O2SAT 94–100; BMI 23.8
[2023-08-05 06:10] LABS: Internal QC Validated? YES +Cl - CLEAR BKGD; Pregnancy, Urine Negative Negative
[2023-08-05 06:17] LABS: Bedside Glucose 107 mg/dL (74-106)
[2023-08-05] MEDS: Acetaminophen 500 MG Tablet 1000 MG PO ×3 (06:18→22:24)
[2023-08-05] MEDS: Gabapentin 600 MG Tablet PO (06:19)
[2023-08-05] MEDS: Scopolamine 1mg/72hr Patch 1 PATCH TD (06:19)
[2023-08-05] MEDS: Lactated Ringers 1,000 ML 999 ML IV (06:42)
[2023-08-05] MEDS: Magnesium 1 GM over 15 mins IV (06:43)
--- NOTE | 2023-08-05 07:27 | HP.PCM_ITS ---
History and Physical Date of Admission: 08/05/23 [facility] [address] [place] [address] OFFICE VISIT Date of Service: 05/28/23 MR#: [id number] Acct: [id number] Name: CHALO RICCI Rep #: [id number] : 1990 Provider: Dr. Mohinder Sotomayor DO Age/Sex: 32/F Location: [facility] Status: Signed Intake Vital Signs 03/12/2313:09 Height 5 ft Weight: 121 lb BMI 23.6 Intake Visit Reasons: RIGHT HIP Chief Complaint: right hip Accompanied by: Mother Is patient in pain?: Yes Pain scale (1-10): 7 Allergies adhesive Allergy (Verified 06/13/19 09:22) Rash Medications albuterol sulfate 90 mcg/actuation aerosol inhaler (Ventolin HFA) 1 - 2 puff inhalation Q4H PRN PRN Wheezing ##1 06/12/16 [Rx Confirmed 05/28/23] dicyclomine 10 mg capsule 10 mg PO TIDAC 10/25/16 [History Confirmed 05/28/23] folic acid 1 mg tablet 1 mg PO DAILY 08/21/19 [History Confirmed 05/28/23] hydroxychloroquine 200 mg tablet 200 mg PO DAILYCM 08/21/19 [History Confirmed 05/28/23] multivitamin 1 ea PO DAILY 08/21/19 [History Confirmed 05/28/23] famotidine 20 mg tablet 20 mg PO 03/12/23 [History Confirmed 05/28/23] methotrexate sodium 25 mg/mL injection solution 10 mg subcut QWEEK 03/12/23 [History Confirmed 05/28/23] PFSH Medical History (Updated 05/28/23 @ 13:45 by Daniela Echevarria) History of gastrostomy tube placement Surgical History (Updated 03/12/23 @ 13:22 by Daniela Echevarria) History of placement of ear tubes Hx of cholecystectomy Hx of heart surgery Hx of kidney removal Social History (Updated 05/28/23 @ 13:46 by Daniela Echevarria) Smoking Status: Never smoker alcohol intake: never HPI RIGHT HIP Details: Parts of this documentation were recorded by a scribe, this documentation accurately reflects the service provided and the decisions made by me, Dr. Mohinder Sotomayor, DO 05/28/23 1053. CHALO RICCI is a 32 year old F here today for F/U on right hip after having CT templating to determine if she is able to have a PITER. She continues to have the severe right groin pain with ambulation. She states that this limits her with her ADLs. SHe states that now she cant use stairs d/t the hip pain and she is unable to walk her dog d/t the hip pain. Denies any known dental infections or work that needs to be completed. Denies any known active infections. Ortho Exam General General: Yes no acute distress Neurologic: Yes alert and Yes oriented x3 Psychologic: Yes reasonable and appropriate Right Hip Skin: Yes CDI, No Ecchymosis, No soft tissue swelling and No Erythema Homans Sign: No HIP: 0 internal rotation with pain 8 external rotation with pain intact sensation to light touch throughout leg and palpable pedal pulse. 5/5 plantar and dorsi flexion no s/sx of infection head: Normocephalic Atraumatic Chest: symmetrical rise, non-labored breathing, no audible wheeze Abdomen: no guarding, non-rigid Supplemental Info 04/21/2023 CT scan MAKOplasty protocol: Severe hip arthrosis preoperative plan reviewed with MAKOplasty specialist we do not feel there is need for bony augmentation. 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 Congenital insufficiency of aortic valve Q23.1 Aortic root dilatation I77.810 Solitary kidney Mixed connective tissue disease M35.1 Inflammatory polyarthropathy M06.4 Rheumatoid nodule of multiple sites M06.39 Rheumatoid arthritis M06.9 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 SLE (systemic lupus erythematosus related syndrome) M32.9 History of pericarditis Z86.79 History of lupus nephritis Z87.448 Systemic lupus erythematosus M32.9 Right bundle branch block I45.10 Assessment and Plan Assessment and Plan (1) Osteoarthritis of right hip: Status: Acute (2) Stage 3 chronic kidney disease: Status: Chronic (3) Hearing impairment: Status: Acute (4) 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: Status: Acute (5) Congenital mitral insufficiency: Status: Acute (6) Congenital insufficiency of aortic valve: Status: Acute (7) Aortic root dilatation: Status: Acute (8) Solitary kidney: Status: Acute (9) Mixed connective tissue disease: Status: Acute (10) Inflammatory polyarthropathy: Status: Acute (11) Rheumatoid nodule of multiple sites: Status: Acute (12) Rheumatoid arthritis: Status: Acute (13) Lupus nephritis: Status: Acute (14) SLE (systemic lupus erythematosus related syndrome): Status: Acute (15) History of pericarditis: Status: Chronic (16) History of lupus nephritis: Status: Chronic (17) Systemic lupus erythematosus: Status: Chronic (18) Right bundle branch block: Status: Chronic Plan Patient educated that the CT shows that she has severe OA of the right hip and there is enough bone stock for her to have a PITER. Risks, benefits and alternatives of surgery reviewed including but not limited to bleeding, infection, nerve, foot drop, artery and/or tissue damage, fracture, VTE, leg length discrepancy, dislocation, need for hip precautions, continued pain and expected post-operative course. Reviewed the pre-operative plans with the patient. Risks and benefits of the procedure were fully explained, including but not limited to infection, neurovascular injury, continued pain, arthritis, stiffness, need for further surgery, re-injury, DVT, PE, general risks of anesthesia, and loss of limb or life. The patient understands all the risks and does wish to proceed with written consent for right PITRE. Her voltage regulator assembler told her last month that she is able to have surgery from her RA and Lupus stand poi nt. She will also need PCP (Dr. Smith), cardiac (Dr. Tyson Pat [facility]) and nephrology (Dr. Tucker ) clearance. She will need admission secondary to multiple Comorbidities. Tentative surgery date July 22, 2023 she already has had her CT so does not need to have this repeated. Follow up 2 weeks post op or sooner if pain, swelling, numbness or associated symptoms, or concerns develop. All questions answered. Patient in agreement of plan. 05/28/23 1457 <Electronically signed by Mohinder Sotoamyor DO> Date Mohinder Sotomayor DO Cosigner Signature: Date (if applicable) I have examined the patient and the H&P has been reviewed. There are no clinical changes since date of exam.
--- NOTE | 2023-08-05 07:30 | HIP_PTH ---
PATIENT: CHALO RICCI LOC: MS3 U#:[id number] AGE/SX: 33/F ROOM: MS319 RE08/05/[address]: Dr. Mohinder Sotomayor DO : 1990 BED: 1 DIS: 08/12/2023 SPEC #: [id number] RECD: 08/05/23 11:09 STATUS: PITER REBA #: [id number] CALIXTO: 08/05/23 07:[address]: Mohinder Sotomayor DEPT: SURGICAL PATHOLOGY RECD BY: Luther Mcneil ENTERED: 08/05/23 13:03 SP TYPE: TOTAL HIP OTHR DR: MD Dr. Kimani Livingston MD Tissues: Hip, NOS Procedures: Decalcification bone/plaque Surgery Specimen Level IV HEADER OPERATION: ERAS, total hip arthroplasty robotic assisted PRE-OP DIAGNOSIS: Osteoarthritis right hip TISSUE SUBMITTED: Right hip bone MICROSCOPIC DIAGNOSIS Bone and tissue of right hip, total hip resection: Severe degenerative joint disease. AM:ulysses 08/07/2023 MICROSCOPIC DESCRIPTION Slides are reviewed. GROSS DESCRIPTION Received is one container labeled with the patient's name and designated right hip bone. The specimen consists of a markedly deformed femoral head measuring 4.5 x 4.5 x 3.5 cm. Also present on the top of femoral head is a piece of soft tissue measuring 3.0 x 0.7 x 0.2 cm. Also present in the container are detached pieces of bone measuring in aggregate 4.5 x 4.0 x 1.5 cm. The soft tissue entirely consists of bone reamings measuring in aggregate 7.0 x 7.0 x 2.0 cm. The articular surface displays prominent osteophyte formation, eburnation and bone erosion. Operations Vice President sections are submitted in two cassettes after decalcification as follows: 1 - soft tissue and bone reamings, 2 - femoral head. / SJ:ulysses 08/05/2023 TC:5 CPT: 30680, 87585
[2023-08-05] MEDS: Cefazolin 2 GM in 0.9% Normal Saline (100mL Bag) 100 ML IV (07:42)
[2023-08-05] MEDS: TRANEXAMIC ACID 2,000 MG in 0.9% Normal Saline (100mL Bag) 100 ML 660 MG IV (07:55)
[2023-08-05] MEDS: dexAMETHasone 10 MG/ML Vial IV (08:00)
--- NOTE | 2023-08-05 10:07 | OP.PCM_ITS ---
Operative Report Date of Procedure: 08/05/23 Preoperative diagnosis: Right hip DJD Postoperative diagnosis: Same Procedure: CT-guided Makoplasty assisted right total hip arthroplasty Implants: Chetan Accolade II stem size 3, 127 degree neck angle 0 neck length 44 mm Trident II acetabular shell with 30 mm cancellous screw 32mm ceramic head, Trident X3 polyethylene insert. Anesthesia: General ET EBL: 175 cc Complications: None Condition: Stable to PACU School Fundraising Director Juno Wallace. My physician social worker assistant was a vital part of this case. He was important in appropriate retraction during the case, and protection of soft tissues during procedure. His intimate knowledge of the case and my steps aided in safe and expedient completion of the procedure as well as appropriate position of the extremity during the case. He was also vital in assisting with closure under my direct supervision. Indication for procedure: This is a 33-year-old female who has lupus and rheumatoid arthritis with multiple medical comorbidities had long-standing arthrosis of the hip who has failed conservative treatment and wished to undergo total hip arthroplasty. We did discuss operative versus nonoperative intervention including risks of bleeding, infection , nerve artery tissue damage, need for further surgery, fracture, leg length discrepancy dislocation blood clot and need for postoperative physical therapy and postoperative expectations. An informed consent was signed. Procedure: Patient was met in the preoperative holding area once again the operative extremity was identified by both patient and physician and was marked. Patient was met by anesthesia . Anesthesia was started. patient was then positioned in the lateral decubitus position on a well-padded pegboard with an axillary roll. All bony prominences were checked and padded. The patient was prepped and draped in the usual sterile fashion. A timeout was called to ensure the proper patient procedure and extremity were being contemplated. Anatomic landmarks were palpated and marked for a standard posterior lateral approach. Prior to this the ASIS was palpated and 3 fingerbreadths proximal to this 3 pins were placed at a 45 degree angle into the iliac crest with good purchase, stab incisions were made with a 15 blade into the skin prior to placement. The Ronny oplasty array was then secured. A 10 blade scalpel was used to make a posterior incision through the skin and subcutaneous tissue. retractors were used and electrocautery was used to maintain meticulous hemostasis and dissect full- thickness flaps until the gluteal fascia was reached. The gluteal fascia was incised in line with the gluteal fibers. The bursal tissue was then freed from the underside and a Charnley retractor was placed. The femoral trochanteric checkpoint was placed and leg length was assessed using the trochanteric checkpoint and an EKG lead that was placed on the knee prior to prepping the leg .the fat pad was then elevated off of the external rotators with electrocautery and the external rotators were dissected off of the greater trochanter including the piriformis and were tagged with #1 Ethibond for later repair. The joint capsule opened with posterior trapdoor technique. The hip was surgically dislocated. The measurement on the preoperative CT from the top of the lesser trochanter to the femoral neck cut was marked Hohmann was placed around the lesser trochanter. A neck cutting guide was used to amanda the neck with a Bovie and an oscillating saw was used complete the femoral neck cut. The femoral head was then removed and sized. We then turned our attention to the acetabulum. A Bovie was used to make a perforation in the anterior joint capsule and a Gross retractor was placed this was repeated in the 6 o'clock position and a wide jhon was placed there. With a long handled knife the labral and pulvinar tissue were removed. We then registered the acetabulum with the pointing array and confirmed our landmarks. Once the socket was thoroughly prepared and labral tissue and pulvinar was removed we single reamed with the robotic arm. We then used the robotic arm to position the acetabular implant and impacted it into place under robotic guidance. We then proceeded to place a posterior superior screw by drilling first measuring and inserting the screw. We then inserted a trial liner. And turned our attention back to the femur at this point a femoral elevator was used. As well as a pointed wide Hohmann around the lesser trochanter and a Hohmann to help retract the gluteus medius. A box chisel was used to remove excess lateral neck followed by a canal finder and a lateralizing reamer. This was followed by sequential broaches. Attention was made of the version within the canal based on preoperative templating. Once the final broach was seated we then trialed reduced the hip it was determined that a 127 degree neck angle with a 0 neck length was the appropriate size. We then checked stability with shuck testing as well as flexion and internal rotation. then proceeded with hip extension and checked leg lengths at the knees and heels as well as with the trochanteric checkpoint and knee EKG lead. At this point trials were removed. A liner was inserted to the cup. The femoral stem was inserted. We re-trialed and then proceeded to impact the femoral head onto the Jameel taper. We then surgically reduce the hip check stability again and leg lengths and were satisfied. Betadine rinse was allowed to sit for 5 minutes while everyone changed their gloves. Thorough irrigation was performed. Followed by closure of the external rotators with #2 FiberWire followed by closure of gluteal fascia with #1 Ethibond. 0 Vicryl fat stitches and 2-0 Vicryl subcutaneous stitches and israel in the skin. Acme were placed in the skin pin sites over the iliac crest and dressed with a Mepilex dressing. The main incision was dressed with a Mepilex ag dressing and an abduction pillow was placed. Patient tolerated the procedure well there was no intraoperative complications all counts were correct and the patient was brought back to the PACU in stable condition
--- NOTE | 2023-08-05 10:34 | RAD_ITS ---
STUDY: X-RAY - PELVIS AND RIGHT HIP REASON FOR EXAM: Female, 33 years old. Post Op -- AP both hips on single alicia/lateral of op hip PACU TECHNIQUE: 2 views of the pelvis and hip. COMPARISON: Comparison is made with prior study March 12, 2023. FINDINGS: The patient is status post right total hip replacement. There is good alignment. Stable degenerative changes of the left hip joint with findings suggestive of avascular necrosis. RAD/Hip Min 2 Views (Portable) IMPRESSION: Status post right total hip replacement. There is good alignment. Postoperative soft tissue changes. Electronically Signed: Deejay Young MD at 10:56 EDT ,
[2023-08-05] MEDS: Lactated Ringers 1,000 ML 125 ML IV ×2 (10:59→15:54)
[2023-08-05] MEDS: Dicyclomine 10 MG Capsule PO (16:00)
[2023-08-05] MEDS: Cefazolin 1 GM/50 ML BAG IV (16:00)
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
--- NOTE | 2023-08-05 16:24 | PN.HOSP_ITS ---
Reason for Visit Reason for Visit: Diagnoses Encounter for other preprocedural examination (08/05/23) Subjective Subjective The patient is s/p R THR per Dr. Sotomayor with history of AVN and chronic debility, R hip pain despite outpatient conservative interventions and treatments. She notes currently pain 6/10 sharp stabbing with any activity but when seated again and at rest reports 3/10 with more dull aching. She is tolerating her diet without issue. She denies any denies fevers, chills, nausea, emesis, abdominal pain, chest pain or dyspnea. Objective Data Objective Data Vital Signs: Vital Signs Temp Pulse Resp BP Pulse Ox O2 Del Method O2 Flow Rate 97.6 F L 61 16 113/72 96 Room Air 2 08/05/23 15:44 08/05/23 15:44 08/05/23 15:44 08/05/23 15:44 08/05/23 15:44 08/05/23 15:44 08/05/23 12:15 Oxygen Flow Rate (L/min) 2 Oxygen Delivery Method Room Air Weight: 122 lb Body Mass Index (BMI) 23.8 Intake & Output: Intake and Output for Last 24 Hours 08/03/23 08/04/23 08/05/23 23:59 23:59 23:59 Intake Total 2093.67 / 2093.67 Balance 2093.67 / 2093.67 Lab / Micro Data 07/24/23 09:33 07/24/23 09:33 Labs: Laboratory Results - last 24 hr 08/05/23 05:50: Urine Test Negative 08/05/23 05:57: POC Glucose 107 H Micro: Microbiology 07/24/23 09:33 Swab (Method) Nasal Screen MRSA/MSSA - Final Radiography Diagnostic Testing: Radiology Impression Hip X-Ray 08/05/23 10:34 IMPRESSION: Status post right total hip replacement. There is good alignment. Postoperative soft tissue changes. Electronically Signed: Deejay Young MD at 10:56 EDT , Physical Exam Narrative Physical Examination: General: Awake, alert, oriented x 3 and cooperative, seated upright in medical surgical bedside chair, notes pain currently dull aching 3 out of 10. Skin: Normal color, normal turgor, no icterus, no cyanosis except for recent OR with right hip dressing in place with no drainage. HEENT: AT/NC, EOMI, PERRLA, MMM, atypical craniofacial abnormalities with suspected some type of underlying congenital abnormality. Lungs: Diminished, greater bases, appropriate effort, no rales, ronchi or wh eezing. Heart: Regular rate and rhythm; no gallop, rub audible. Abdomen: Soft, NTTP, ND, normal BS. Extremities: No cyanosis, clubbing, or edema, status post right total hip replacement as noted with dressings in place without drainage. Neurological: Patient awake, alert, oriented as noted, cognitive function intact; pupils equally reactive to light and accommodation, cranial nerves II- XII grossly normal, moving all 4 extremities although as expected somewhat limited right lower extremity given recent hip replacement, strength accordingly moderately to severely global decrease. Psychiatric: Affect appears normal, no acute evidence of depressive or anxiety feelings. Assessment & Plan Assessment/Plan (1) Osteoarthritis of right hip: PLAN: Plan The patient is a 33 y/o F w/ PMHx: Lupus, CKD stage III following w/ Dr. Tucker with reported history of lupus nephritis and also s/p unilateral nephrectomy prior, GERD, Rheumatoid arthritis, Hx Congenital ASD s/p repair who presents to the [facility] on 08/05/23 secondary to ongoing debility, right hip pain for planned R THR per Dr. Sotomayor. #1. Severe Osteoarthritis R hip, AVN: Failed conservative therapies and treatments, admitted per Dr. Sotomayor, s/p R THR, post-operative pain management, bowel regimen, DVT Prophylaxis, PT/OT/CM per Orthopedic surgery discretion. #2. Lupus: Noted to have renal involvement per history reviewed, not on any chronic steroids per review nor any other MAB or lupus type medication regimen, encourage continued outpatient follow-up. #3. Hx Congenital ASD: s/p repair, unclear exact type of surgical repair, en courage continued outpatient follow-up with Cardiology as previously arranged. #4. CKD stage III: Patient following w/ Dr. Tucker with reported history of lupus nephritis and also s/p unilateral nephrectomy prior, #5. GERD: Continue home famotidine regimen. #6. Rheumatoid arthritis: Patient on chronic methotrexate as well as hydroxychloroquine and folic acid supplementation, methotrexate and hydroxychloroquine temporarily held by surgery, continue folic acid supplementation. #7. DVT Prophylaxis: SCDs, chemoprophylaxis per Surgery discretion. Charges/Coding Visit Charges Inpatient E&M: 95416 Subs Hosp L3
[2023-08-05] MEDS: oxyCODONE 5 MG Tablet PO (17:23)
[2023-08-05] MEDS: 0.9% Saline Lock 10 ML Syringe IV (18:21)
[2023-08-05] MEDS: Ondansetron 4 MG/2 ML Vial IV (18:21)
[2023-08-05] MEDS: Senna/Docusate Sodium 1 Tablet 2 TABLET PO (22:24)
[2023-08-06] MEDS: Cefazolin 1 GM/50 ML BAG IV ×2 (00:29→08:35)
[2023-08-06 03:30] VITALS: BP 96/55; PULSE 68; RESP 14; TEMP 36.7; O2SAT 99
[2023-08-06] MEDS: Acetaminophen 500 MG Tablet 1000 MG PO ×3 (05:45→21:38)
[2023-08-06] MEDS: APIXABAN 2.5 MG TABLET (WCH) PO ×2 (05:46→21:38)
[2023-08-06] MEDS: Dicyclomine 10 MG Capsule PO ×3 (05:46→16:34)
[2023-08-06 06:47] LABS: Hematocrit 30.3 % (37-47); Hemoglobin 9.3 g/dL (12.0-15.0); Mean Corp Hgb Conc 30.7 g/dL (32-36); Mean Corpuscular Hgb 32.4 pg (27.0-32.0); Mean Corpuscular Volume 105.6 fL (81-99); Mean Platelet Vol. 12.8 fl (6.2-12.0); Platelet Count 166 K/mm3 (150-450); RBC Distribution Width SD 50.1 fl (35.1-43.9); Red Blood Count 2.87 M/mm3 (4.2-5.4)
[2023-08-06 07:43] LABS: Anion Gap 5 (5-15); BUN 15 mg/dL (7-18); BUN/Creat Ratio 8.9 RATIO (10-20); Calcium,Total 8.2 mg/dL (8.5-10.1); Chloride 110 mmol/L (98-107); Creatinine, Serum 1.69 mg/dL (0.55-1.02); EST Glomerular Filtration Rate 37 mL/min (>60); Est Glom Filt Rate - Afr Amer 45 mL/min (>60); Estimated Creatinine Clearance 33.69 ml/min; Glucose 99 mg/dL (74-106); Sodium Level 139 mmol/L (136-145)
--- NOTE | 2023-08-06 07:51 | PCM.PN.HOSP ---
Reason for Visit Reason for Visit: Diagnoses Unilateral primary osteoarthritis, right hip (08/05/23) Encounter for other preprocedural examination (08/05/23) Subjective Subjective Patient is a 33-year-old lady with history of severe osteoarthritis involving the right hip with avascular necrosis who underwent right total hip replacement following failed conservative management. Procedure was performed on 08/05/2023 the hospitalist service was consulted to assist with management of patient medical comorbidities Objective Data Objective Data Vital Signs: Vital Signs Temp Pulse Resp BP Pulse Ox O2 Del Method O2 Flow Rate 98.1 F 68 14 96/55 L 99 Room Air 2 08/06/23 03:30 08/06/23 03:30 08/06/23 03:30 08/06/23 03:30 08/06/23 03:30 08/06/23 03:30 08/05/23 12:15 Oxygen Flow Rate (L/min) 2 Oxygen Delivery Method Room Air Weight: 55.338 kg Body Mass Index (BMI) 23.8 Intake & Output: Intake and Output for Last 24 Hours 08/04/23 08/05/23 08/06/23 23:59 23:59 23:59 Intake Total 3143.67 / 3383.67 540 / 540 Balance 3143.67 / 3383.67 540 / 540 Lab / Micro Data 08/06/23 06:20 08/06/23 06:20 Labs: Laboratory Results - last 24 hr 08/06/23 06:20: WBC 10.0, RBC 2.87 L, Hgb 9.3 L, Hct 30.3 L, MCV 105.6 H, MCH 32.4 H, MCHC 30.7 L, RDW Std Deviation 50.1 H, RDW Coeff of Deejay 13.0, Plt Count 166, MPV 12.8 H, Sodium 139, Potassium 4.0, Chloride 110 H, Carbon Dioxide 24.0, Anion Gap 5, BUN 15, Creatinine 1.69 H, Estim Creat Clear Calc 33.69, Est GFR (MDRD) Af Amer 45 L, Est GFR (MDRD) Non-Af 37 L, BUN/Creatinine Ratio 8.9 L, Glucose 99, Calcium 8.2 L Micro: Microbiology 07/24/23 09:33 Swab (Method) Nasal Screen MRSA/MSSA - Final Radiography Diagnostic Testing: Radiology Impression Hip X-Ray 08/05/23 10:34 IMPRESSION: Status post right total hip replacement. There is good alignment. Postoperative soft tissue changes. Electronically Signed: Deejay Young MD at 10:56 EDT , Physical Exam Narrative GENERAL: cooperative HEENT: Atraumatic; normocephalic EYES; Anicteric, Normal Conjunctiva NECK; supple, normal thyroid, RESPIRATORY: Diminished to auscultation CARDIOVASCULAR: Regular S1 S2, GI: soft, normoactive bowel sounds, : No Renal angle tenderness; EXTREMITIES: No edema, no clubbing, MUSCULOSKELETAL: Hip surgical incision CDI NEURO: Awake; no lateralizing signs. SKIN: No Rash PSYCH; Flat affect Assessment & Plan Assessment/Plan (1) Osteoarthritis of right hip: QUALIFIERS: Osteoarthritis type: primary Qualified Code(s): M16.11 - Unilateral primary osteoarthritis, right hip PLAN: Plan Patient is a 33-year-old lady with history of severe osteoarthritis involving the right hip with avascular necrosis who underwent right total hip replacement following failed conservative management. Procedure was performed on 08/05/2023 the hospitalist service was consulted to assist with management of patient medical comorbidities 1. Status post right total hip replacement ? By Dr. Sotomayor on 08/05/2023. Patient postoperative orders regarding PT OT, DVT prophylaxis and pain management addressed by primary service 2. 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 Patient is followed by nephrology as outpatient 3. Lupus ? With renal involvement patient to follow-up with PCP for subsequent care. Patient is on hydroxychloroquine 4. 4. Rheumatoid arthritis ? Patient is on methotrexate in addition to hydroxychloroquine 5. Chronic kidney disease stage III ? Patient is followed by nephrology as outpatient 6.. ASD ? Status post repair. Remains stable 7.Anemia ? Secondary to anemia of chronic disorder as well as acute blood loss anemia following surgery monitoring H&H with plans to transfuse patient be Symptomatic or hemoglobin falls below 7 8 DVT prophylaxis ? On apixaban 2.5 mg p.o. twice daily Time spent in the patient's overall evaluation,decision-making process, review of diagnostic data, adjustment of management, discussion with other providers, nursing nursing and ancillary staff involved in patient's care documentation, 50 minutes Charges/Coding Visit Charges Inpatient E&M: 57356 Subs Hosp L3
[2023-08-06] MEDS: Folic Acid 1 MG Tablet PO (08:27)
[2023-08-06] MEDS: Senna/Docusate Sodium 1 Tablet 2 TABLET PO ×2 (08:27→21:38)
[2023-08-06] MEDS: Multivitamins,Therapeutic Tablet 1 TABLET PO (08:27)
[2023-08-06] MEDS: Famotidine 20 MG Tablet PO (08:27)
[2023-08-06 08:50] VITALS: O2SAT 95
[2023-08-06 09:30] VITALS: BP 93/63; PULSE 83; RESP 16; TEMP 36.8; O2SAT 98
--- NOTE | 2023-08-06 10:54 | CASEMGMT ---
RN CM Face to Face with patient for initial transition planning/care coordination assessment. RN CM introduced self and role at [facility]. Patient lying in bed, alert and oriented. Patient willing to participate in assessment and is able to answer all questions appropriately.? Care providers, pharmacy, and demographics verified. Pt mother was the cg who was planning on assisting pt post surgery. Per pt, she is in stable but critical condition in another hospital on a ventilator. Pt states she cannot go to her sister's house d/t there not being enough room and it is a two story home. Pt has not spoken to her aunt about possibly staying with her. Pt inquires about a SNF for therapy post hospitalization. Patient states she has no further needs or concerns at this time. CM to follow for discharge planning needs that may arise. PCP:Luis Specialists:Bi cardio; Garrett nephro; Rheum- pt cannot recall name Preferred Pharmacy:[facility] Retail Insurance:[facility] Prescription Benefit:?yes LNOK:Ruth Reynolds, mother; Elba Kaur, aunt; Julia Narayanan, sister Living Arrangements:Pt lives with her mother in a two story home with 1 step to enter without a rail. Pt reports she was I in ADLs prior to surgery. Transportation:Pt states family transports her to medical appts. DME:raised toilet seat, BSC, FWW, cane, manual w/c- Pt typically uses a cane for ambulation. HHC:Denies hx of SNF:Denies hx of Disposition Plan:SNF, updated SW
--- NOTE | 2023-08-06 11:50 | CASEMGMT ---
Discharge Planning A list of SNF providers including quality and resource use data and consistent with the patient?s preferred geographic region, medical needs, and insurance network was created in CarePort Guide. This list was provided to the SW. Amairani Baltazar Discharge Planning Asst.
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
[2023-08-06] MEDS: oxyCODONE 5 MG Tablet PO (13:15)
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
--- NOTE | 2023-08-06 14:22 | CASEMGMT ---
Discharge Planning Referral sent to [facility] via [facility]. Amairani Baltazar, Discharge Planning Asst.
[2023-08-06 15:03] VITALS: BP 100/65; PULSE 89; RESP 16; TEMP 37.2; O2SAT 98
[2023-08-06 20:01] VITALS: BP 103/69; PULSE 82; RESP 16; TEMP 37.2; O2SAT 100
[2023-08-07 02:32] VITALS: BP 94/64; PULSE 85; RESP 16; TEMP 37.3; O2SAT 98
[2023-08-07] MEDS: Acetaminophen 500 MG Tablet 1000 MG PO ×3 (06:04→22:42)
[2023-08-07] MEDS: Dicyclomine 10 MG Capsule PO ×3 (06:04→16:43)
[2023-08-07 06:51] LABS: Hemoglobin 9.2 g/dL (12.0-15.0); Mean Corp Hgb Conc 31.7 g/dL (32-36); Mean Corpuscular Hgb 33.6 pg (27.0-32.0); Mean Corpuscular Volume 105.8 fL (81-99); Mean Platelet Vol. 12.6 fl (6.2-12.0); Platelet Count 152 K/mm3 (150-450); RBC Distribution Width CV 13.3 % (11.6-14.6); RBC Distribution Width SD 51.6 fl (35.1-43.9); Red Blood Count 2.74 M/mm3 (4.2-5.4); White Blood Count 12.1 K/mm3 (4.4-11.0)
--- NOTE | 2023-08-07 07:31 | PCM.PN.HOSP ---
Reason for Visit Reason for Visit: Diagnoses Unilateral primary osteoarthritis, right hip (08/05/23) Encounter for other preprocedural examination (08/05/23) Presence of right artificial hip joint (08/05/23) Subjective Subjective Postoperative day 2. Pain is tolerable. Patient seen participating in physical therapy Objective Data Objective Data Vital Signs: Vital Signs Temp Pulse Resp BP Pulse Ox O2 Del Method O2 Flow Rate 99.1 F 85 16 94/64 98 Room Air 2 08/07/23 02:08/07/23 02:08/07/23 02:08/07/23 02:08/07/23 02:08/07/23 02:08/05/23 12:15 Oxygen Flow Rate (L/min) 2 Oxygen Delivery Method Room Air Weight: 55.338 kg Body Mass Index (BMI) 23.8 Intake & Output: Intake and Output for Last 24 Hours 08/05/23 08/06/23 08/07/23 23:59 23:59 23:59 Intake Total 3143.67 / 3383.67 1440 / 1440 500 / 500 Balance 3143.67 / 3383.67 1440 / 1440 500 / 500 Lab / Micro Data 08/07/23 06:40 08/06/23 06:20 Labs: Laboratory Results - last 24 hr 08/06/23 06:20: Sodium 139, Potassium 4.0, Chloride 110 H, Carbon Dioxide 24.0, Anion Gap 5, BUN 15, Creatinine 1.69 H, Estim Creat Clear Calc 33.69, Est GFR (MDRD) Af Amer 45 L, Est GFR (MDRD) Non-Af 37 L, BUN/Creatinine Ratio 8.9 L, Glucose 99, Calcium 8.2 L 08/07/23 06:40: WBC 12.1 H, RBC 2.74 L, Hgb 9.2 L, Hct 29.0 L, MCV 105.8 H, MCH 33.6 H, MCHC 31.7 L, RDW Std Deviation 51.6 H, RDW Coeff of Deejay 13.3, Plt Count 152, MPV 12.6 H Micro: Microbiology 07/24/23 09:33 Swab (Method) Nasal Screen MRSA/MSSA - Final Physical Exam Narrative GENERAL: cooperative HEENT: Atraumatic; normocephalic EYES; Anicteric, Normal Conjunctiva NECK; supple, normal thyroid, RESPIRATORY: Diminished to auscultation CARDIOVASCULAR: Regular S1 S2, GI: soft, normoactive bowel sounds, : No Renal angle tenderness; EXTREMITIES: No edema, no clubbing, MUSCULOSKELETAL: Hip surgical incision CDI NEURO: Awake; no lateralizing signs. SKIN: No Rash PSYCH; Flat affect Assessment & Plan Assessment/Plan (1) Osteoarthritis of right hip: QUALIFIERS: Osteoarthritis type: primary Qualified Code(s): M16.11 - Unilateral primary osteoarthritis, right hip PLAN: Plan Patient is a 33-year-old lady with history of severe osteoarthritis involving the right hip with avascular necrosis who underwent right total hip replacement following failed conservative management. Procedure was performed on 08/05/2023 the hospitalist service was consulted to assist with management of patient medical comorbidities 1. Status post right total hip replacement ? By Dr. Sotomayor on 08/05/2023. Patient postoperative orders regarding PT OT, DVT prophylaxis and pain management addressed by primary service 2. 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 Patient is followed by nephrology as outpatient 3. Lupus ? With renal involvement patient to follow-up with PCP for subsequent care. Patient is on hydroxychloroquine 4. 4. Rheumatoid arthritis ? Patient is on methotrexate in addition to hydroxychloroquine 5. Chronic kidney disease stage III ? Patient is followed by nephrology as outpatient 6.. ASD ? Status post repair. Remains stable 7.Anemia ? Secondary to anemia of chronic disorder as well as acute blood loss anemia following surgery monitoring H&H with plans to transfuse patient be Symptomatic or hemoglobin falls below 7 8 DVT prophylaxis ? On apixaban 2.5 mg p.o. twice daily 9. Disposition -as per case management stability of nursing home facility since patient currently has no one at home to assist her with her ADLs Time spent in the patient's overall evaluation,decision-making process, review of diagnostic data, adjustment of management, discussion with other providers, nursing nursing and ancillary staff involved in patient's care documentation, 35 minutes Charges/Coding Visit Charges Inpatient E&M: 08308 Subs Hosp L2
--- NOTE | 2023-08-07 07:41 | PCM.PN.ORT ---
Subjective Subjective Seen and examined. Doing okay denies fevers chills nausea vomiting malaise. Admits to a slight dry cough thinks is due to dry mouth. Pain controlled. Objective Data Objective Data Vital Signs: Vital Signs Temp Pulse Resp BP Pulse Ox O2 Del Method O2 Flow Rate 99.1 F 85 16 94/64 98 Room Air 2 08/07/23 02:32 08/07/23 02:08/07/23 02:08/07/23 02:08/07/23 02:08/07/23 02:08/05/23 12:15 Oxygen Flow Rate (L/min) 2 Oxygen Delivery Method Room Air Weight: 122 lb Body Mass Index (BMI) 23.8 Intake & Output: Intake and Output for Last 24 Hours 08/05/23 08/06/23 08/07/23 23:59 23:59 23:59 Intake Total 3143.67 / 3383.67 1440 / 1440 500 / 500 Balance 3143.67 / 3383.67 1440 / 1440 500 / 500 Lab / Micro Data 08/07/23 06:40 08/06/23 06:20 Labs: Laboratory Results - last 24 hr 08/06/23 06:20: Sodium 139, Potassium 4.0, Chloride 110 H, Carbon Dioxide 24.0, Anion Gap 5, BUN 15, Creatinine 1.69 H, Estim Creat Clear Calc 33.69, Est GFR (MDRD) Af Amer 45 L, Est GFR (MDRD) Non-Af 37 L, BUN/Creatinine Ratio 8.9 L, Glucose 99, Calcium 8.2 L 08/07/23 06:40: WBC 12.1 H, RBC 2.74 L, Hgb 9.2 L, Hct 29.0 L, MCV 105.8 H, MCH 33.6 H, MCHC 31.7 L, RDW Std Deviation 51.6 H, RDW Coeff of Deejay 13.3, Plt Count 152, MPV 12.6 H Micro: Microbiology 07/24/23 09:33 Swab (Method) Nasal Screen MRSA/MSSA - Final Physical Exam Const alert, oriented x3 and no apparent distress General Appearance: cooperative Extremity Extremity Narrative: Right hip dressing clean dry intact compartment soft neurovascular intact right lower extremity Assessment & Plan Assessment/Plan (1) S/P total hip arthroplasty: QUALIFIERS: Laterality: right Qualified Code(s): Z96.641 - Presence of right artificial hip joint PLAN: Plan Appreciate medical consult and comanagement Postop day #2 right total hip arthroplasty PT OT weightbearing as tolerated with hip precautions Eliquis 2.5 mg twice daily, SCDs and WAYNE hose We will leave dressing on for 5 days postop. After which she will be removed and clean daily with antibacterial soap and warm water and replace with a dry dressing. DC planning today Case management consulted.
--- NOTE | 2023-08-07 07:42 | DCINST_ITS ---
Discharge Instructions Diet Discharge Diet: No restrictions Dressing / Incision Call your doctor if you observe: Shortness of breath and Chest pain Additional Dressing/Incision Instructions:: Do not shower 72hrs. Begin daily showering warm water antibacterial soap postop day #5 and then daily. Leave the dressing on for 5 days postoperatively then may remove prior to first shower and change dressing daily after this until no drainage for 2 consecutive days then may leave open to air. Follow hip precautions that were reviewed in hospital. Wear compression stockings, may remove at night. Start physical therapy as directed in hospital. Follow prescriptions instructions do not take any other pain medication or differ dosing without consulting your physician. Call Dr. Sotomayor's office with any concerns. Follow Up Care Please Follow Up With: Mohinder Sotomayor DO When: 2 weeks Test Results: Test results from this visit will be discussed in further detail at your follow- up appointment, if applicable. Discharge Plan Admission Admit Date/Time: 08/05/23 05:09 Primary Reason for Your Visit: Right total hip arthroplasty Attending Provider: Daryl Garcia Primary Care Provider: Kimani Smith Consulting Providers: Errol Logan; Madison Wood; Mohinder Sotomayor Discharge Orders/Prescriptions Prescriptions: New acetaminophen 500 mg Tablet 1,000 mg PO Q8 Qty: 100 1RF oxycodone 5 mg Tablet 5 - 10 mg PO Q4H PRN PRN (Reason: Pain Score 4-10) 7 Days Qty: 60 0RF Eliquis 2.5 mg tablet 2.5 mg PO BID Qty: 42 0RF Continued famotidine 20 mg tablet 20 mg PO DAILY Patient Comments: TAKE 1 TABLET BY MOUTH EVERY DAY albuterol sulfate [Ventolin HFA] 1 INHALER inhaler 1 - 2 puff inhalation Q4H PRN PRN (Reason: Wheezing) Qty: 1 0RF dicyclomine 10 MG capsule 10 mg PO TIDAC multivitamin 1 EACH tablet 1 ea PO DAILY folic acid 1 MG tablet 1 mg PO DAILY Patient Comments: TAKE 1 TABLET BY MOUTH EVERY DAY hydroxychloroquine 200 MG tablet 200 mg PO DAILYCM methotrexate sodium 25 mg/mL solution 10 mg subcut QWEEK Patient Comments: INJECT 0.6 ML SUBCUTANEOUSLY ONCE EACH WEEK. Other Ambulatory Orders: 12 Lead EKG (Routine) Timeframe: [id number] Location: None Selected Ordered By: Dr. Mohinder Sotomayor Referrals / Follow Up: Kimani Smith MD [Primary Care Provider] -
--- NOTE | 2023-08-07 07:48 | PCM.TXEXTCAR ---
Diet Diet Order/Speech Therapy: 08/05/23 16:43 Diet: Regular - General Wound(s) RT HIP: Wound Type: Surgical Incision RT GROIN: Wound Type: Foreign Body Therapies Weight Bearing: Full weight bearing Physical Therapy: Eval and Treat Problem/Diagnosis (1) S/P total hip arthroplasty: Status: Acute Code(s): Z96.649 - Presence of unspecified artificial hip joint Plan Appreciate medical consult and comanagement Postop day #2 right total hip arthroplasty PT OT weightbearing as tolerated with hip precautions Eliquis 2.5 mg twice daily, SCDs and WAYNE hose We will leave dressing on for 5 days postop. After which she will be removed and clean daily with antibacterial soap and warm water and replace with a dry dressing. DC planning today Case management consulted. Allergies/Procedures Done in Hospital Allergies adhesive Allergy (Verified 08/05/23 06:02) Rash Type of Care/Length of Stay Estimated LOS: Convalescent Care Less Than 30 days Type of Care Needed: Skilled Rehab Potential: Good Prognosis: Good Additional Orders/Day of Discharge Day of Discharge: 08/07/23 Follow Up Care Please Follow Up With: Mohinder Sotomayor DO When: 2 weeks Discharge Plan Admission Admit Date/Time: 08/05/23 05:09 Primary Reason for Your Visit: Right total hip arthroplasty Attending Provider: Daryl Garcia Primary Care Provider: Kimani Smith Consulting Providers: Errol Logan; Madison Wood; Mohinder Sotomayor Discharge Orders/Prescriptions Prescriptions: New acetaminophen 500 mg Tablet 1,000 mg PO Q8 Qty: 100 1RF oxycodone 5 mg Tablet 5 - 10 mg PO Q4H PRN PRN (Reason: Pain Score 4-10) 7 Days Qty: 60 0RF Eliquis 2.5 mg tablet 2.5 mg PO BID Qty: 42 0RF Continued famotidine 20 mg tablet 20 mg PO DAILY Patient Comments: TAKE 1 TABLET BY MOUTH EVERY DAY albuterol sulfate [Ventolin HFA] 1 INHALER inhaler 1 - 2 puff inhalation Q4H PRN PRN (Reason: Wheezing) Qty: 1 0RF dicyclomine 10 MG capsule 10 mg PO TIDAC multivitamin 1 EACH tablet 1 ea PO DAILY folic acid 1 MG tablet 1 mg PO DAILY Patient Comments: TAKE 1 TABLET BY MOUTH EVERY DAY hydroxychloroquine 200 MG tablet 200 mg PO DAILYCM methotrexate sodium 25 mg/mL solution 10 mg subcut QWEEK Patient Comments: INJECT 0.6 ML SUBCUTANEOUSLY ONCE EACH WEEK. Other Ambulatory Orders: 12 Lead EKG (Routine) Timeframe: [id number] Location: None Selected Ordered By: Dr. Mohinder Sotomayor Referrals / Follow Up: Kimani Smith MD [Primary Care Provider] - Disposition Disposition (needs filled in before D/C Order can be placed): Residential Facility (1) S/P total hip arthroplasty Qualifiers: Laterality: right Qualified Code(s): Z96.641 - Presence of right artificial hip joint
[2023-08-07] MEDS: Multivitamins,Therapeutic Tablet 1 TABLET PO (07:54)
[2023-08-07] MEDS: Famotidine 20 MG Tablet PO (07:54)
[2023-08-07] MEDS: Senna/Docusate Sodium 1 Tablet 2 TABLET PO ×2 (07:54→22:42)
[2023-08-07] MEDS: APIXABAN 2.5 MG TABLET (WCH) PO ×2 (07:55→22:42)
[2023-08-07] MEDS: Folic Acid 1 MG Tablet PO (07:55)
[2023-08-07 08:22] VITALS: BP 96/52; PULSE 95; RESP 16; TEMP 36.9; O2SAT 99
[2023-08-07 09:31] VITALS: O2SAT 99
[2023-08-07 11:13] VITALS: BP 97/64; PULSE 82; RESP 16; TEMP 36.8; O2SAT 100
--- NOTE | 2023-08-07 12:08 | CASEMGMT ---
Discharge Planning Patient has been declined by [facility]. SW updated. Referrals sent via [facility]Port to [facility] and [facility]. Discharge Planning Asst.
--- NOTE | 2023-08-07 12:24 | CASEMGMT ---
Social Work SW entered pt room and pt lying in bed crying. Pt willing to speak with SW openly and discuss concerns. Pt has not gotten an update on the condition of her mom. Pt's sister stating pt's dog will need to be given away as she cannot care for them. Pt distressed by this. SW worked with pt to problem solve this and emotional support provided. Pt states her aunt visited yesterday and informed her that pt can come to her home after rehabilitation. Aunt is supportive of pt. WINIFRED updated pt that [facility] is unable to accept. Pt now asking to go to a facility near her aunt in [place]. A new SNF list with updated location provided to pt and reviewed. Pt requesting referrals be sent to [facility] and [facility]. Referrals sent by DC sales assistant entertainment and media. Return message: [facility] does not have beds available. [facility] is able to accept. Precert to be started at this time. WINIFRED updated pt of accepting facility. Plan: [facility], pending precGEO Lamb
--- NOTE | 2023-08-07 12:30 | CASEMGMT ---
Discharge Planning Patient has been accepted by [facility]. Asked that precert be started. SW updated. Amairani Baltazar, Discharge Planning Asst.
--- NOTE | 2023-08-07 13:40 | CHAPLAIN ---
Type of Pastoral Visit ___ Initial Visit _x__ Follow-up Visit ___ On-call Visit ___ General Patient Visit ___ Spiritual Assessment ___ Family Conference ___ Bereavement ___ Rapid Response ___ Code Blue ___ Other (describe below) Pastoral Care Referral From _x__ Patient ___ Family ___ Nurse ___ Physician ___ [employer] ___ [place] ___ Other (describe below) Sacrament/Intervention _x__ Active listening ___ Anointing ___ Gnosticist ___ Bereavement ___ Communion ___ [place] exploration ___ _x__ Life review _x__ Prayer ___ Reconciliation ___ Sacrament of Sick _x__ Supportive presence ___ Wedding ___ Other (describe below) Pastoral Comments patient is tearful upon entering her room; pt explains that there is just more bad news; pt states that her mother is still in ICU and unresponsive and that her sister will not be able to care for her dogs much longer and they will need to go somewhere; pt will be going to a rehab soon but other concerns include living arrangements since she was in the process of moving and now I can't afford the new place without my mother; pt wants help with financial questions, placement of dogs, a home for herself, places for her belongings, and other concerns; this mess attendant crew listened and asked pt about priorities or urgency of her issues and how to address each one in order of urgency and importance; offered to say prayers and pt agrees; referred several times to help from other family, friends, and our team
[2023-08-07 16:35] VITALS: BP 93/60; PULSE 93; RESP 16; TEMP 36.9; O2SAT 99
[2023-08-07 20:01] VITALS: BP 94/58; PULSE 95; RESP 16; TEMP 37.2; O2SAT 99
[2023-08-07] MEDS: oxyCODONE 5 MG Tablet PO (20:02)
[2023-08-08 02:57] VITALS: BP 92/60; PULSE 86; RESP 16; TEMP 36.8; O2SAT 100
[2023-08-08] MEDS: Dicyclomine 10 MG Capsule PO ×3 (05:58→16:16)
[2023-08-08] MEDS: Acetaminophen 500 MG Tablet 1000 MG PO ×3 (05:58→21:09)
[2023-08-08 06:29] LABS: Hematocrit 26.5 % (37-47); Hemoglobin 8.4 g/dL (12.0-15.0); Mean Corp Hgb Conc 31.7 g/dL (32-36); Mean Corpuscular Hgb 33.6 pg (27.0-32.0); Mean Platelet Vol. 12.4 fl (6.2-12.0); Platelet Count 144 K/mm3 (150-450); RBC Distribution Width CV 13.1 % (11.6-14.6); RBC Distribution Width SD 50.8 fl (35.1-43.9); White Blood Count 9.7 K/mm3 (4.4-11.0)
--- NOTE | 2023-08-08 08:35 | PCM.PN.HOSP ---
Reason for Visit Reason for Visit: Diagnoses Other acute postprocedural pain (08/05/23) Unilateral primary osteoarthritis, right hip (08/05/23) Encounter for other preprocedural examination (08/05/23) Presence of right artificial hip joint (08/05/23) Subjective Subjective Patient seen participating in physical therapy. Awaiting insurance approval prior to transfer to [facility] facility Objective Data Objective Data Vital Signs: Vital Signs Temp Pulse Resp BP Pulse Ox O2 Del Method O2 Flow Rate 98.2 F 86 16 92/60 100 Room Air 2 08/08/23 02:57 08/08/23 02:57 08/08/23 02:57 08/08/23 02:57 08/08/23 02:57 08/08/23 02:57 08/05/23 12:15 Oxygen Flow Rate (L/min) 2 Oxygen Delivery Method Room Air Weight: 55.338 kg Body Mass Index (BMI) 23.8 Intake & Output: Intake and Output for Last 24 Hours 08/06/23 08/07/23 08/08/23 23:59 23:59 23:59 Intake Total 1440 / 1440 1800 / 1800 350 / 350 Balance 1440 / 1440 1800 / 1800 350 / 350 Lab / Micro Data 08/08/23 05:50 08/06/23 06:20 Labs: Laboratory Results - last 24 hr 08/08/23 05:50: WBC 9.7, RBC 2.50 L, Hgb 8.4 L, Hct 26.5 L, MCV 106.0 H, MCH 33.6 H, MCHC 31.7 L, RDW Std Deviation 50.8 H, RDW Coeff of Deejay 13.1, Plt Count 144 L, MPV 12.4 H Micro: Microbiology 07/24/23 09:33 Swab (Method) Nasal Screen MRSA/MSSA - Final Physical Exam Narrative GENERAL: cooperative HEENT: Atraumatic; normocephalic EYES; Anicteric, Normal Conjunctiva NECK; supple, normal thyroid, RESPIRATORY: Diminished to auscultation CARDIOVASCULAR: Regular S1 S2, GI: soft, normoactive bowel sounds, : No Renal angle tenderness; EXTREMITIES: No edema, no clubbing, MUSCULOSKELETAL: Hip surgical incision CDI NEURO: Awake; no lateralizing signs. SKIN: No Rash PSYCH; Flat affect Assessment & Plan Assessment/Plan (1) Osteoarthritis of right hip: QUALIFIERS: Osteoarthritis type: primary Qualified Code(s): M16.11 - Unilateral primary osteoarthritis, right hip PLAN: Plan Patient is a 33-year-old lady with history of severe osteoarthritis involving the right hip with avascular necrosis who underwent right total hip replacement following failed conservative management. Procedure was performed on 08/05/2023 the hospitalist service was consulted to assist with management of patient medical comorbidities 1. Status post right total hip replacement ? By Dr. Sotomayor on 08/05/2023. Patient postoperative orders regarding PT OT, DVT prophylaxis and pain management addressed by primary service 2. 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 Patient is followed by nephrology as outpatient 3. Lupus ? With renal involvement patient to follow-up with PCP for subsequent care. Patient is on hydroxychloroquine 4. 4. Rheumatoid arthritis ? Patient is on methotrexate in addition to hydroxychloroquine 5. Chronic kidney disease stage III ? Patient is followed by nephrology as outpatient 6.. ASD ? Status post repair. Remains stable 7.Anemia ? Secondary to anemia of chronic disorder as well as acute blood loss anemia following surgery monitoring H&H with plans to transfuse patient be Symptomatic or hemoglobin falls below 7 8 DVT prophylaxis ? On apixaban 2.5 mg p.o. twice daily 9. Disposition -as per case management stability of [facility] facility since patient currently has no one at home to assist her with her ADLs Time spent in the patient's overall evaluation,decision-making process, review of diagnostic data, adjustment of management, discussion with other providers, nursing nursing and ancillary staff involved in patient's care documentation, 35 minutes Charges/Coding Visit Charges Inpatient E&M: 71386 Subs Hosp L2
[2023-08-08 09:19] VITALS: BP 96/63; PULSE 91; RESP 18; TEMP 37.1; O2SAT 98
[2023-08-08] MEDS: Senna/Docusate Sodium 1 Tablet 2 TABLET PO ×2 (09:27→21:09)
[2023-08-08] MEDS: Multivitamins,Therapeutic Tablet 1 TABLET PO (09:27)
[2023-08-08] MEDS: APIXABAN 2.5 MG TABLET (WCH) PO ×2 (09:27→21:10)
[2023-08-08] MEDS: Famotidine 20 MG Tablet PO (09:27)
[2023-08-08] MEDS: Folic Acid 1 MG Tablet PO (09:27)
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
--- NOTE | 2023-08-08 14:01 | CASEMGMT ---
Addendum entered by Jimena Ochoa 08/08/23 17:27: Social Work Precert has not yet been obtained. SW updated pt and her aunt. 7000 exemption form completed and sent to [facility] as insurance requires this for precert. WINIFRED requested [facility] to call floor if precert has been obtained. Plan: [facility], pending precert GEO Fisher Original Note: Social Work SW met with pt and provided emotional support. Pt appreciative of visit from WINIFRED and openly expressing feelings. Pt's aunt is providing a significant amount of support to pt. WINIFRED updated that facility has accepted, pt is medically ready and precert is pending. WINIFRED will continue to follow for support and dc planning. GEO Fisher
[2023-08-08 14:26] VITALS: BP 110/71; PULSE 94; RESP 18; TEMP 36.8; O2SAT 100
--- NOTE | 2023-08-08 16:22 | NURSING ---
family bedside identifies herself as Elba Santillan [phone]. pt and family asking about discharge planning, aware awaiting on insurance coChelly Arreola states she would like to be notified when we have heard as she is the one that lives close to where/facility patient is being discharged to. Discussed methotrexate. informed pt did see ordered to continued once discharged.talked with Jimena care mgmt- aware CM is reaching out to insurance/facility.
[2023-08-08 20:26] VITALS: BP 95/57; PULSE 84; RESP 16; TEMP 36.9; O2SAT 98
[2023-08-09 02:12] VITALS: BP 95/57; PULSE 84; RESP 16; TEMP 36.9; O2SAT 98
[2023-08-09] MEDS: Dicyclomine 10 MG Capsule PO ×3 (06:05→15:56)
[2023-08-09] MEDS: Acetaminophen 500 MG Tablet 1000 MG PO ×3 (06:05→20:22)
--- NOTE | 2023-08-09 06:26 | NURSING ---
mepilex dressing changed on rt hip x2
--- NOTE | 2023-08-09 07:41 | PN.HOSP_ITS ---
Reason for Visit Reason for Visit: Diagnoses Other acute postprocedural pain (08/05/23) Unilateral primary osteoarthritis, right hip (08/05/23) Encounter for other preprocedural examination (08/05/23) Presence of right artificial hip joint (08/05/23) Subjective Subjective Change in condition awaiting transfer to [facility] pending insurance approval Objective Data Objective Data Vital Signs: Vital Signs Temp Pulse Resp BP Pulse Ox O2 Del Method O2 Flow Rate 98.4 F 84 16 95/57 L 98 Room Air 2 08/09/23 02:12 08/09/23 02:12 08/09/23 02:12 08/09/23 02:12 08/09/23 02:12 08/09/23 02:12 08/05/23 12:15 Oxygen Flow Rate (L/min) 2 Oxygen Delivery Method Room Air Weight: 55.338 kg Body Mass Index (BMI) 23.8 Intake & Output: Intake and Output for Last 24 Hours 08/07/23 08/08/23 08/09/23 23:59 23:59 23:59 Intake Total 1800 / 1800 1390 / 1390 120 / 120 Balance 1800 / 1800 1390 / 1390 120 / 120 Lab / Micro Data 08/08/23 05:50 08/06/23 06:20 Micro: Microbiology 07/24/23 09:33 Swab (Method) Nasal Screen MRSA/MSSA - Final Physical Exam Narrative GENERAL: cooperative HEENT: Atraumatic; normocephalic EYES; Anicteric, Normal Conjunctiva NECK; supple, normal thyroid, RESPIRATORY: Diminished to auscultation CARDIOVASCULAR: Regular S1 S2, GI: soft, normoactive bowel sounds, : No Renal angle tenderness; EXTREMITIES: No edema, no clubbing, MUSCULOSKELETAL: Hip surgical incision CDI NEURO: Awake; no lateralizing signs. SKIN: No Rash PSYCH; Flat affect Assessment & Plan Assessment/Plan (1) Osteoarthritis of right hip: QUALIFIERS: Osteoarthritis type: primary Qualified Code(s): M16.11 - Unilateral primary osteoarthritis, right hip PLAN: Plan Patient is a 33-year-old lady with history of severe osteoarthritis involving the right hip with avascular necrosis who underwent right total hip replacement following failed conservative management. Procedure was performed on 08/05/2023 the hospitalist service was consulted to assist with management of patient medical comorbidities 1. Status post right total hip replacement ? By Dr. Sotomayor on 08/05/2023. Patient postoperative orders regarding PT OT, DVT prophylaxis and pain management addressed by primary service 2. 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 Patient is followed by nephrology as outpatient 3. Lupus ? With renal involvement patient to follow-up with PCP for subsequent care. Patient is on hydroxychloroquine 4. 4. Rheumatoid arthritis ? Patient is on methotrexate in addition to hydroxychloroquine 5. Chronic kidney disease stage III ? Patient is followed by nephrology as outpatient 6.. ASD ? Status post repair. Remains stable 7.Anemia ? Secondary to anemia of chronic disorder as well as acute blood loss anemia following surgery monitoring H&H with plans to transfuse patient be Symptomatic or hemoglobin falls below 7 8 DVT prophylaxis ? On apixaban 2.5 mg p.o. twice daily 9. Disposition -as per case management stability of intermediate facility since patient currently has no one at home to assist her with her ADLs Time spent in the patient's overall evaluation,decision-making process, review of diagnostic data, adjustment of management, discussion with other providers, nursing nursing and ancillary staff involved in patient's care documentation, 35 minutes Charges/Coding Visit Charges Inpatient E&M: 87810 Subs Hosp L2
[2023-08-09] MEDS: Folic Acid 1 MG Tablet PO (08:06)
[2023-08-09] MEDS: Multivitamins,Therapeutic Tablet 1 TABLET PO (08:07)
[2023-08-09 08:12] VITALS: BP 110/79; PULSE 91; RESP 16; TEMP 36.6; O2SAT 99
[2023-08-09] MEDS: oxyCODONE 5 MG Tablet PO ×3 (09:53→20:22)
[2023-08-09] MEDS: Famotidine 20 MG Tablet PO (10:00)
[2023-08-09] MEDS: APIXABAN 2.5 MG TABLET (WCH) PO ×2 (10:00→20:22)
--- NOTE | 2023-08-09 11:09 | PCM.PN.ORT ---
Subjective Subjective Seen and examined. Doing okay. She is coping with the stress of her mother and home situation. Objective Data Objective Data Vital Signs: Vital Signs Temp Pulse Resp BP Pulse Ox O2 Del Method O2 Flow Rate 98.4 F 84 16 95/57 L 98 Room Air 2 08/09/23 02:12 08/09/23 02:12 08/09/23 02:12 08/09/23 02:12 08/09/23 02:12 08/09/23 02:12 08/05/23 12:15 Oxygen Flow Rate (L/min) 2 Oxygen Delivery Method Room Air Weight: 122 lb Body Mass Index (BMI) 23.8 Intake & Output: Intake and Output for Last 24 Hours 08/07/23 08/08/23 08/09/23 23:59 23:59 23:59 Intake Total 1800 / 1800 1390 / 1390 120 / 120 Balance 1800 / 1800 1390 / 1390 120 / 120 Lab / Micro Data 08/08/23 05:50 08/06/23 06:20 Micro: Microbiology 07/24/23 09:33 Swab (Method) Nasal Screen MRSA/MSSA - Final Physical Exam Const alert and oriented x3 General Appearance: cooperative Extremity Extremity Narrative: Right hip dressing clean dry intact compartment soft neurovascular intact right lower extremity Assessment & Plan Assessment/Plan (1) S/P total hip arthroplasty: QUALIFIERS: Laterality: right Qualified Code(s): Z96.641 - Presence of right artificial hip joint (2) Stage 3 chronic kidney disease: (3) Rheumatoid arthritis: (4) SLE (systemic lupus erythematosus related syndrome): (5) CKD (chronic kidney disease): PLAN: Plan Appreciate medical consult and comanagement Postop day #4 right total hip arthroplasty PT OT weightbearing as tolerated with hip precautions Eliquis 2.5 mg twice daily, SCDs and WAYNE hose Dressing was changed to right hip therefore at this point should be cleaned daily with antibacterial soap and warm water and replaced with a clean dressing daily. Patient may shower now. Patient has multiple medical comorbidities and is on disability for them her mother is in critical care at another hospital and we are working on placement. DC planning as soon as insurance allows. Follow-up 2 weeks for wound check staple removal.
[2023-08-09 14:12] VITALS: BP 108/75; PULSE 86; RESP 18; TEMP 36.8; O2SAT 100
[2023-08-09 20:27] VITALS: BP 99/66; PULSE 88; RESP 18; TEMP 37.4; O2SAT 98
[2023-08-10 05:00] VITALS: BP 107/66; PULSE 86; RESP 16; TEMP 36.9; O2SAT 100
[2023-08-10] MEDS: Acetaminophen 500 MG Tablet 1000 MG PO ×3 (05:07→20:05)
[2023-08-10] MEDS: Dicyclomine 10 MG Capsule PO ×3 (05:07→15:46)
--- NOTE | 2023-08-10 08:05 | PCM.PN.HOSP ---
Reason for Visit Reason for Visit: Diagnoses Other acute postprocedural pain (08/05/23) Rheumatoid arthritis, unspecified (08/05/23) Unilateral primary osteoarthritis, right hip (08/05/23) Systemic lupus erythematosus, unspecified (08/05/23) Chronic kidney disease, stage 3 unspecified (08/05/23) Chronic kidney disease, unspecified (08/05/23) Encounter for other preprocedural examination (08/05/23) Presence of right artificial hip joint (08/05/23) Subjective Subjective Patient has tolerated physical therapy well so far. Awaiting insurance authorization/precertification prior to transfer to nursing home. Objective Data Objective Data Vital Signs: Vital Signs Temp Pulse Resp BP Pulse Ox O2 Del Method O2 Flow Rate 98.5 F 86 16 107/66 100 Room Air 2 08/10/23 05:00 08/10/23 05:00 08/10/23 05:00 08/10/23 05:00 08/10/23 05:00 08/10/23 05:00 08/05/23 12:15 Oxygen Flow Rate (L/min) 2 Oxygen Delivery Method Room Air Weight: 55.338 kg Body Mass Index (BMI) 23.8 Intake & Output: Intake and Output for Last 24 Hours 08/08/23 08/09/23 08/10/23 23:59 23:59 23:59 Intake Total 1390 / 1390 1320 / 1320 Balance 1390 / 1390 1320 / 1320 Lab / Micro Data 08/08/23 05:50 08/06/23 06:20 Micro: Microbiology 07/24/23 09:33 Swab (Method) Nasal Screen MRSA/MSSA - Final Physical Exam Narrative GENERAL: cooperative HEENT: Atraumatic; normocephalic EYES; Anicteric, Normal Conjunctiva NECK; supple, normal thyroid, RESPIRATORY: Diminished to auscultation CARDIOVASCULAR: Regular S1 S2, GI: soft, normoactive bowel sounds, : No Renal angle tenderness; EXTREMITIES: No edema, no clubbing, MUSCULOSKELETAL: Hip surgical incision CDI NEURO: Awake; no lateralizing signs. SKIN: No Rash PSYCH; Flat affect Assessment & Plan Assessment/Plan (1) Osteoarthritis of right hip: QUALIFIERS: Osteoarthritis type: primary Qualified Code(s): M16.11 - Unilateral primary osteoarthritis, right hip PLAN: Plan Patient is a 33-year-old lady with history of severe osteoarthritis involving the right hip with avascular necrosis who underwent right total hip replacement following failed conservative management. Procedure was performed on 08/05/2023 the hospitalist service was consulted to assist with management of patient medical comorbidities 1. Status post right total hip replacement ? By Dr. Sotomayor on 08/05/2023. Patient postoperative orders regarding PT OT, DVT prophylaxis and pain management addressed by primary service -08/10/2023; Patient has tolerated physical therapy well so far. Awaiting insurance authorization/precertification prior to transfer to nursing home. 2. 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 Patient is followed by nephrology as outpatient 3. Lupus ? With renal involvement patient to follow-up with PCP for subsequent care. Patient is on hydroxychloroquine 4. 4. Rheumatoid arthritis ? Patient is on methotrexate in addition to hydroxychloroquine 5. Chronic kidney disease stage III ? Patient is followed by nephrology as outpatient 6.. ASD ? Status post repair. Remains stable 7.Anemia ? Secondary to anemia of chronic disorder as well as acute blood loss anemia following surgery monitoring H&H with plans to transfuse patient be Symptomatic or hemoglobin falls below 7 8 DVT prophylaxis ? On apixaban 2.5 mg p.o. twice daily 9. Disposition -as per case management stability of nursing home facility since patient currently has no one at home to assist her with her ADLs Time spent in the patient's overall evaluation,decision-making process, review of diagnostic data, adjustment of management, discussion with other providers, nursing nursing and ancillary staff involved in patient's care documentation, 35 minutes Charges/Coding Visit Charges Inpatient E&M: 09297 Subs Hosp L2
[2023-08-10] MEDS: Folic Acid 1 MG Tablet PO (08:47)
[2023-08-10] MEDS: Multivitamins,Therapeutic Tablet 1 TABLET PO (08:47)
[2023-08-10 08:53] VITALS: BP 107/55; PULSE 99; RESP 18; TEMP 36.6; O2SAT 99
[2023-08-10 10:30] VITALS: RESP 18; O2SAT 99
--- NOTE | 2023-08-10 10:51 | PCM.PN.ORT ---
Subjective Subjective Seen and examined. No changes no complaints or concerns Objective Data Objective Data Vital Signs: Vital Signs Temp Pulse Resp BP Pulse Ox O2 Del Method O2 Flow Rate 98 F 99 18 107/55 L 99 Room Air 2 08/10/23 08:53 08/10/23 08:53 08/10/23 08:53 08/10/23 08:53 08/10/23 08:53 08/10/23 08:53 08/05/23 12:15 Oxygen Flow Rate (L/min) 2 Oxygen Delivery Method Room Air Weight: 122 lb Body Mass Index (BMI) 23.8 Intake & Output: Intake and Output for Last 24 Hours 08/08/23 08/09/23 08/10/23 23:59 23:59 23:59 Intake Total 1390 / 1390 1320 / 1320 Balance 1390 / 1390 1320 / 1320 Lab / Micro Data 08/08/23 05:50 08/06/23 06:20 Micro: Microbiology 07/24/23 09:33 Swab (Method) Nasal Screen MRSA/MSSA - Final Physical Exam Const alert and oriented x3 General Appearance: cooperative Extremity Extremity Narrative: Right hip dressing clean dry intact compartment soft neurovascular intact right lower extremity Assessment & Plan Assessment/Plan (1) S/P total hip arthroplasty: QUALIFIERS: Laterality: right Qualified Code(s): Z96.641 - Presence of right artificial hip joint (2) Stage 3 chronic kidney disease: (3) Rheumatoid arthritis: (4) SLE (systemic lupus erythematosus related syndrome): (5) CKD (chronic kidney disease): PLAN: Plan Appreciate medical consult and comanagement Postop day #5 right total hip arthroplasty PT OT weightbearing as tolerated with hip precautions Eliquis 2.5 mg twice daily, SCDs and WAYNE hose Dressing was changed to right hip therefore at this point should be cleaned daily with antibacterial soap and warm water and replaced with a clean dressing daily. Patient may shower now. Patient has multiple medical comorbidities and is on disability for them her mother is in critical care at another hospital and we are working on placement. DC planning as soon as insurance allows. Follow-up 2 weeks postoperatively for wound check staple removal.
[2023-08-10] MEDS: APIXABAN 2.5 MG TABLET (WCH) PO ×2 (11:38→20:05)
[2023-08-10] MEDS: Famotidine 20 MG Tablet PO (11:38)
[2023-08-10] MEDS: Senna/Docusate Sodium 1 Tablet 2 TABLET PO ×2 (11:38→20:04)
[2023-08-10 15:00] VITALS: BP 105/67; PULSE 92; RESP 18; TEMP 36.6; O2SAT 100
[2023-08-10] MEDS: oxyCODONE 5 MG Tablet PO (15:46)
[2023-08-10 16:45] VITALS: PULSE 92; RESP 18; O2SAT 100
[2023-08-10 20:00] VITALS: BP 101/70; PULSE 87; RESP 18; TEMP 37.3; O2SAT 98
[2023-08-11 05:00] VITALS: BP 105/63; PULSE 82; RESP 16; TEMP 36.7; O2SAT 100
[2023-08-11] MEDS: Dicyclomine 10 MG Capsule PO ×3 (05:57→14:51)
[2023-08-11] MEDS: Acetaminophen 500 MG Tablet 1000 MG PO ×3 (05:57→20:35)
[2023-08-11 08:15] VITALS: BP 113/71; PULSE 90; RESP 14; TEMP 36.7; O2SAT 99
[2023-08-11] MEDS: Famotidine 20 MG Tablet PO (08:38)
[2023-08-11] MEDS: APIXABAN 2.5 MG TABLET (WCH) PO ×2 (08:38→20:35)
[2023-08-11] MEDS: Folic Acid 1 MG Tablet PO (08:38)
[2023-08-11] MEDS: Multivitamins,Therapeutic Tablet 1 TABLET PO (08:38)
[2023-08-11 09:53] VITALS: O2SAT 95
--- NOTE | 2023-08-11 12:50 | CHAPLAIN ---
Type of Pastoral Visit ___ Initial Visit _x__ Follow-up Visit ___ On-call Visit ___ General Patient Visit ___ Spiritual Assessment ___ Family Conference ___ Bereavement ___ Rapid Response ___ Code Blue ___ Other (describe below) Pastoral Care Referral From _x__ Patient ___ Family ___ Nurse ___ Physician ___ Bottom Saw Operator ___ Contract Clerk [employer]obile ___ Other (describe below) Sacrament/Intervention _x__ Active listening ___ Anointing ___ Buddhist ___ Bereavement ___ Communion ___ Clar[place] exploration ___ ___ Life review ___ Prayer ___ Reconciliation ___ Sacrament of Sick _x__ Supportive presence ___ Wedding ___ Other (describe below) Pastoral Comments emotional support given for this follow up visit; pt gave updates or lack of any changes; dogs are still in care of sister; talked about waiting and patience; no other needs noted at this time
--- NOTE | 2023-08-11 14:29 | PN.HOSP_ITS ---
Reason for Visit Reason for Visit: Diagnoses Other acute postprocedural pain (08/05/23) Rheumatoid arthritis, unspecified (08/05/23) Unilateral primary osteoarthritis, right hip (08/05/23) Systemic lupus erythematosus, unspecified (08/05/23) Chronic kidney disease, stage 3 unspecified (08/05/23) Chronic kidney disease, unspecified (08/05/23) Encounter for other preprocedural examination (08/05/23) Presence of right artificial hip joint (08/05/23) Subjective Subjective Feels well. No issues overnight. Objective Data Objective Data Vital Signs: Vital Signs Temp Pulse Resp BP Pulse Ox O2 Del Method O2 Flow Rate 36.7 C 90 14 113/71 95 Room Air 2 08/11/23 08:15 08/11/23 08:15 08/11/23 08:15 08/11/23 08:15 08/11/23 09:53 08/11/23 08:15 08/05/23 12:15 Oxygen Flow Rate (L/min) 2 Oxygen Delivery Method Room Air Weight: 55.338 kg Body Mass Index (BMI) 23.8 Intake & Output: Intake and Output for Last 24 Hours 08/09/23 08/10/23 08/11/23 23:59 23:59 23:59 Intake Total 1320 / 1320 800 / 800 Balance 1320 / 1320 800 / 800 Lab / Micro Data 08/08/23 05:50 08/06/23 06:20 Micro: Microbiology 07/24/23 09:33 Swab (Method) Nasal Screen MRSA/MSSA - Final Physical Exam Const alert and no apparent distress HEENT head/scalp atraumatic Resp normal respiratory effort, no retractions, no use of accessory muscles and clear to auscultation bilaterally Cardio regular rate, regular rhythm, S1 normal heart sound and S2 normal heart sound GI normal to inspection, nondistended, normoactive bowel sounds, soft to palpation, non-tender and non-distended Assessment & Plan Assessment/Plan (1) Osteoarthritis of right hip: QUALIFIERS: Osteoarthritis type: primary Qualified Code(s): M16.11 - Unilateral primary osteoarthritis, right hip PLAN: Status post right total hip replacement By Dr. Sotomayor on 08/05/2023. 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 Patient is followed by nephrology as outpatient * Lupus? With renal involvement patient to follow-up with PCP for subsequent care. Patient is on hydroxychloroquine * Rheumatoid arthritis? Patient is on methotrexate in addition to hydroxychloroquine * Chronic kidney disease stage III? Patient is followed by nephrology as outpatient * ASD? Status post repair. Remains stable * Anemia? Secondary to anemia of chronic disorder as well as acute blood loss anemia following surgery monitoring H&H with plans to transfuse patient be Symptomatic or hemoglobin falls below 7 DVT prophylaxis? On apixaban 2.5 mg p.o. twice daily Disposition-to SNF Medically stable for discharge. Will sign off. Please reconsult if new issues. Charges/Coding Visit Charges Inpatient E&M: 80804 Subs Hosp L2
--- NOTE | 2023-08-11 15:46 | PCM.PN.ORT ---
Subjective Subjective Presented to patients room today, she appears to be doing well overall. Patient states she has been able to complete PT, walking up and down stairs as well as complete a lap around the unit today. She states her pain is very minor and has been controlled well with her pain medications. Patient states she has been told by PT that she is progressing and doing very well under their care. Patient expressed some concern about her diet, states she has not been able to eat as much due to her severe IBS. Patient reports inability to eat fatty foods or spicy foods due to having to use the restroom multiple times due to her hx. Notified patient that she may ask for protein shakes, since she tolerates them, and to speak to the nurse about getting her trays with more bland foods. Patient has been able to get up and down to the restroom, states she feels strong once she is up and out of bed. At this time, patient does not have any other complaints. Objective Data Objective Data Patient evaluated at bedside today. Patient is A&Ox3, no apparent distress or evident discomfort upon entering the room. Occlusive dressing still needing to be changed today, some drainage present on site. Occlusive dressing pulled back, no swelling, ecchymosis, or erythema present. [place] present, skin is approximated and intact. Surrounding skin appears normal. No concerns for infection at this time. Vital Signs: Vital Signs Temp Pulse Resp BP Pulse Ox O2 Del Method O2 Flow Rate 98.0 F 90 14 113/71 95 Room Air 2 08/11/23 08:15 08/11/23 08:15 08/11/23 08:15 08/11/23 08:15 08/11/23 09:53 08/11/23 08:15 08/05/23 12:15 Oxygen Flow Rate (L/min) 2 Oxygen Delivery Method Room Air Weight: 122 lb Body Mass Index (BMI) 23.8 Intake & Output: Intake and Output for Last 24 Hours 08/09/23 08/10/23 08/11/23 23:59 23:59 23:59 Intake Total 1320 / 1320 800 / 800 Balance 1320 / 1320 800 / 800 Lab / Micro Data 08/08/23 05:50 08/06/23 06:20 Micro: Microbiology 07/24/23 09:33 Swab (Method) Nasal Screen MRSA/MSSA - Final Physical Exam Const alert, oriented x3 and no apparent distress General Appearance: cooperative Resp normal respiratory effort Effort and Inspection: able to speak in complete sentences Extremity Negative for normal capillary refill, no calf tenderness or no pedal edema Extremity Narrative: Patient able to display appropriate ROM post-op with minimal discomfort. She is able to display both passive and active ROM. Strength is symmetric, patient displays normal sensation to light touch throughout the extremity. Compartments are soft and non-tender. Negative Homans sign. General Extremity: Negative for calf tenderness Skin No no rashes or lesions noted and skin turgor normal Skin Narrative: Both incision sites covered with occlusive dressings with drainage to the dressing. Drainage normal for post-op. Dressings pulled back, no redness, swelling, or bruising to the well approximated incision. Sutures are intact, no green or purulent drainage noted. Surrounding skin showed no erythema or obvious swelling. Psych mental status grossly normal and affect normal Assessment & Plan Assessment/Plan (1) S/P total hip arthroplasty: QUALIFIERS: Laterality: right Qualified Code(s): Z96.641 - Presence of right artificial hip joint PLAN: Examined patient Post-op day #6 for a right total hip arthroplasty. Patient is currently working with PT/OT weightbearing as tolerated with hip precautions. Patient is on Eliquis 2.5 mg twice daily with use of SCDs and WAYEN hose in place. Bilateral dressings last changed to the right hip yesterday, is due for a dressing change, patient stating the nurse is aware and will complete shortly. Patient is experiencing some hardship at this time due to mother in critical care at another facility. Patient unable to focus completely on her recovery d/t the situation at hand. Currently, working on placement for the patient, discharge planning will occur as soon as insurance allows. Patient will follow-up with MD in 2 weeks postoperatively for wound check and staple removal.
[2023-08-11 16:00] VITALS: BP 109/66; PULSE 98; RESP 16; TEMP 36.7; O2SAT 99
[2023-08-11 20:28] VITALS: BP 116/73; PULSE 88; RESP 16; TEMP 36.7; O2SAT 100
[2023-08-12 01:30] VITALS: BP 128/66; PULSE 85; RESP 18; TEMP 36.7; O2SAT 99
[2023-08-12] MEDS: oxyCODONE 5 MG Tablet PO (01:32)
[2023-08-12 06:26] VITALS: BP 101/65; PULSE 85; RESP 16; TEMP 36.9; O2SAT 98
[2023-08-12] MEDS: Acetaminophen 500 MG Tablet 1000 MG PO ×2 (06:30→13:10)
[2023-08-12] MEDS: Dicyclomine 10 MG Capsule PO ×3 (06:31→15:55)
[2023-08-12] MEDS: Folic Acid 1 MG Tablet PO (07:55)
[2023-08-12] MEDS: APIXABAN 2.5 MG TABLET (WCH) PO (07:55)
[2023-08-12] MEDS: Famotidine 20 MG Tablet PO (07:55)
[2023-08-12] MEDS: Multivitamins,Therapeutic Tablet 1 TABLET PO (07:55)
--- NOTE | 2023-08-12 08:20 | CASEMGMT ---
Discharge Planning Precert is still pending as of yesterday morning. Asked for status again this morning and for facility to reach out to someone verbally if still showing pending this morning. SW updated. Amairani Baltazar, Discharge Planning Asst.
[2023-08-12 09:00] VITALS: BP 112/62; PULSE 85; RESP 16; TEMP 36.7; O2SAT 98
--- NOTE | 2023-08-12 09:30 | CASEMGMT ---
Discharge Planning Auth has been received by [facility]. SW updated. Amairani Baltazar, Discharge Planning Asst.
--- NOTE | 2023-08-12 13:50 | CASEMGMT ---
Social Work SW informed patient was accepted and precert was obtained for [facility]. SW informed RN and clarisse Sotomayor. SW met with patient and introduced self and role as [facility] SW. Patient lying in bed and agreeable to speak with SW. SW provided update regarding insurance approval for [facility]. Patient reports needing assistance with transportation and wants ETA to update her Aunt. SW explained d/c process and waiting for MD to officially discharge. Plan: [facility], [facility], when medically ready to d/c Farrah SIMS, LUIZA
[2023-08-12 14:00] VITALS: BP 118/72; PULSE 83; RESP 13; TEMP 36.5; O2SAT 100
--- NOTE | 2023-08-12 15:04 | CASEMGMT ---
Discharge Planning Discharge orders, signed med list, and transport time sent [facility] via [facility]. [facility] will transport patient by cot at 4:30p. Nursing, SW, and patients aunt all updated. Amairani Baltazar, Discharge Planning Asst.
--- NOTE | 2023-08-12 15:20 | NURSING ---
report called to brigid chen at [facility], scheduled p/u [id number]
--- NOTE | 2023-08-12 15:26 | CASEMGMT ---
Discharge Planning Transport time was changed to 5:30. Nursing, SW, and her aunt updated. Amairani Baltazar, Discharge Planning Asst.
--- NOTE | 2023-08-13 13:13 | PCM.DC.SUM ---
Providers Date of Admission: 08/05/23 Primary Care Physician: Dr. Kimani Smith MD Consultations 08/05/23 09:57 Consult: Hospitalist Routine Consulting Provider: Madison Wood Reason for Consult: medical management P.O. EMERGENT Consult: No MD Notified: Yes Date Notified: 08/05/23 Time Notified: 16:12 Method of Notification: Text Reason For Visit: right total hip arthroplasty robotic assisted Diagnosis Discharge Diagnosis (1) S/P total hip arthroplasty: Status: Acute Code(s): Z96.649 - Presence of unspecified artificial hip joint Qualifiers: Laterality: right Qualified Code(s): Z96.641 - Presence of right artificial hip joint Plan Appreciate medical consult and comanagement Postop day #5 right total hip arthroplasty PT OT weightbearing as tolerated with hip precautions Eliquis 2.5 mg twice daily, SCDs and WAYNE hose Dressing was changed to right hip therefore at this point should be cleaned daily with antibacterial soap and warm water and replaced with a clean dressing daily. Patient may shower now. Patient has multiple medical comorbidities and is on disability for them her mother is in critical care at another hospital and we are working on placement. DC planning as soon as insurance allows. Follow-up 2 weeks postoperatively for wound check staple removal. Medications at Discharge Home Medications albuterol sulfate 90 mcg/actuation aerosol inhaler (Ventolin HFA) 1 - 2 puff inhalation Q4H PRN PRN Wheezing ##1 06/12/16 dicyclomine 10 mg capsule 10 mg PO TIDAC IBS 10/25/16 folic acid 1 mg tablet 1 mg PO DAILY SUPPLEMENT 08/21/19 hydroxychloroquine 200 mg tablet 200 mg PO DAILYCM LUPUS 08/21/19 multivitamin 1 ea PO DAILY SUPPLEMENT 08/21/19 famotidine 20 mg tablet 20 mg PO DAILY GASTRITIS 03/12/23 methotrexate sodium 25 mg/mL injection solution 10 mg subcut QWEEK LUPUS & RA 03/12/23 acetaminophen 500 mg tablet 1,000 mg (2 x 500 mg) PO Q8 #100 tabs 08/07/23 apixaban 2.5 mg tablet (Eliquis) 2.5 mg PO BID #42 tabs 08/07/23 oxycodone 5 mg tablet 5 - 10 mg (1 - 2 x 5 mg) PO Q4H PRN PRN Pain Score 4-10 7 days #60 tabs 08/07/23 Hospital Course Operations total hip replacement Summary of Care Provided Hospital Course: Patient with long-standing history of severe right hip DJD who is failed conservative treatment. Patient underwent left total hip arthroplasty day of admission. Patient did receive pre-and postoperative antibiotics which were discontinued within 23 hours postoperatively. Patient pain was controlled with both IV and p.o. pain medication. Patient did receive 2 g of tranexamic acid. Her hemoglobin and hematocrit were monitored postoperatively as well as her vital signs and she did not require any blood transfusion. Dressing changed daily beginning postop day #3 before shower will be removed and replaced after. Pt was started on Eliquis 2.5 mg twice daily postop day #1 for which will continue for 3 weeks post hospital discharge . Patient was seen by physical therapy was ambulating the halls well. patient will be discharged We will start outpatient physical as scheduled. will follow-up in the office in 2 weeks. No intrahospital complications. Physical Exam Const alert, oriented x3 and no apparent distress Extremity Extremity Narrative: Right lower extremity neurovascular intact dressing is clean dry intact Weight / BMI Weight Weight: 122 lb Body Mass Index (BMI) 23.8 ABG / Lab / Microbiology Data 08/08/23 05:50 08/06/23 06:20 Microbiology: Microbiology 07/24/23 09:33 Swab (Method) Nasal Screen MRSA/MSSA - Final D/C Instructions Discharge Diet: No restrictions Call your doctor if you observe: Shortness of breath and Chest pain Additional Dressing/Incision Instructions: Begin daily showering warm water antibacterial soap. change dressing daily until no drainage for 2 consecutive days then may leave open to air. Follow hip precautions that were reviewed in hospital. Wear compression stockings, may remove at night. Start physical therapy as directed in hospital. Follow prescriptions instructions do not take any other pain medication or differ dosing without consulting your physician. Call Dr. Sotomayor's office with any concerns. Please Follow Up With: Mohinder Sotomayor DO When: 2 weeks Meaningful Use Info Meaningful Use Diagnoses (Choose all that apply): None applicable Discharge Plan Admission Admit Date/Time: 08/05/23 05:09 Primary Reason for Your Visit: Right total hip arthroplasty Attending Provider: Mohinder Sotomayor Primary Care Provider: Kimani Smith Consulting Providers: Errol Logan; Madison Wood; Mohinder Sotomayor; Daryl Garcia; Errol Bynum Discharge Orders/Prescriptions Prescriptions: New acetaminophen 500 mg Tablet 1,000 mg PO Q8 Qty: 100 1RF oxycodone 5 mg Tablet 5 - 10 mg PO Q4H PRN PRN (Reason: Pain Score 4-10) 7 Days Qty: 60 0RF Eliquis 2.5 mg tablet 2.5 mg PO BID Qty: 42 0RF Continued famotidine 20 mg tablet 20 mg PO DAILY Patient Comments: TAKE 1 TABLET BY MOUTH EVERY DAY albuterol sulfate [Ventolin HFA] 1 INHALER inhaler 1 - 2 puff inhalation Q4H PRN PRN (Reason: Wheezing) Qty: 1 0RF dicyclomine 10 MG capsule 10 mg PO TIDAC multivitamin 1 EACH tablet 1 ea PO DAILY folic acid 1 MG tablet 1 mg PO DAILY Patient Comments: TAKE 1 TABLET BY MOUTH EVERY DAY hydroxychloroquine 200 MG tablet 200 mg PO DAILYCM methotrexate sodium 25 mg/mL solution 10 mg subcut QWEEK Patient Comments: INJECT 0.6 ML SUBCUTANEOUSLY ONCE EACH WEEK. Other Ambulatory Orders: 12 Lead EKG (Routine) Timeframe: [id number] Location: None Selected Ordered By: Dr. Mohinder Sotomayor Referrals / Follow Up: Kimani Smith MD [Primary Care Provider] - Disposition Disposition (needs filled in before D/C Order can be placed): Long-Term Facility
== END 2023-08-12 19:12 | DRG 324 ==
LOC: ACINP 05:11 → MS3 14:41
PROVIDERS: Anesthesiology; Admitting Provider Orthopaedic Surgery; PCP Family Medicine; Referring Provider Orthopaedic Surgery; Visit Provider Orthopaedic Surgery
PROC: 8E0Y0CZ Robotic Assisted Procedure of Lower Extremity, Open Approach (ICD-10-PCS; CPT 27130; principal; 2023-08-05 07:00)
DX: M16.11 Unilateral primary osteoarthritis, right hip (principal); D62 Acute posthemorrhagic anemia; M32.9 Systemic lupus erythematosus, unspecified; Q23.3 Congenital mitral insufficiency; I77.819 Aortic ectasia, unspecified site; N18.30 Chronic kidney disease, stage 3 unspecified; M06.4 Inflammatory polyarthropathy; M06.39 Rheumatoid nodule, multiple sites; M87.9 Osteonecrosis, unspecified; D63.8 Anemia in other chronic diseases classified elsewhere; Q23.1 Congenital insufficiency of aortic valve; Q21.0 Ventricular septal defect; K21.9 Gastro-esophageal reflux disease without esophagitis; H91.90 Unspecified hearing loss, unspecified ear; Z79.01 Long term (current) use of anticoagulants; Z79.899 Other long term (current) drug therapy; Z87.74 Personal history of (corrected) congenital malformations of heart and circulatory system; Z90.5 Acquired absence of kidney; Z96.641 Presence of right artificial hip joint
CPT/HCPCS: 36415; 73502; 80048; 81025; 82962; 82985; 83036; 83735; 85025; 85027; 85610; 85730; 86850; 86900; 86901; 87081; 88305; 88311; 93005; 94668; 97110; 97116; 97162; 97166; 97530; 97535; C1776; J7120; A4216; J2405; J3475